=== PATIENT | male | born 1945 | race Caucasian/White ===

== ENCOUNTER 2019-11-07 11:58 | Emergency (ER) | payer MEDICARE, SELFPAY ==
--- NOTE | ~2019-11-07 | CT_ITS ---
EXAMINATION: CT soft tissue neck w con DATE: 11/07/2019 13:32 INDICATION: Dysphagia. Sore throat. TECHNIQUE: Computed tomography (CT) of the neck was performed with 75 mL Omnipaque-350 intravenous co ntrast. Automated exposure control and iterative reconstruction technique were employed. The dose-rafi gth product was 592.24 mGy-cm. COMPARISON: Neck CTA 09/21/2019 FINDINGS: There are no pathologically enlarged lymph nodes. There is plaque in the proximal internal carotid arteries with less than 50% stenosis relative to normal distal artery lumen diameters. The o ropharynx is unremarkable. The epiglottis is normal. There is mild mucosal thickening in right maxill jerad sinus. The mastoid air cells are normal. There is severe cervical spondylosis. IMPRESSION: 1. No etiology for the patient's symptoms. Reviewed, dictated and finalized at location [facility]. [employer]
[2019-11-07 12:15] VITALS: BP 104/62; PULSE 67; RESP 18; TEMP 36.8; O2SAT 98
[2019-11-07 12:30] VITALS: BP 115/54; PULSE 69; RESP 18; O2SAT 96
--- NOTE | 2019-11-07 12:32 | ED.GENADULT ---
HPI - General Adult General Chief complaint: Unspecified Stated complaint: short of breath Time Seen by Provider: 11/07/19 12:31 Source: patient Mode of arrival: ambulatory Limitations: no limitations History of Present Illness HPI narrative: A 74 y/o male presents to the ED, with c/o nasal congestion x 1 week that is worsening. Pt states that he cannot breathe d/t congestion and is having difficulty swallowing. Pt states his throat feels swollen and very dry with mild SOB but denies fever, cough, nasal drainage, otalgia, or CP. Pt states he saw an able seaman x 3 days ago for his Sx but there was no findings. He was sent to follow up with Dr. Hunt, an ENT, but he cannot get in to see him until next Thursday. He was prescribed Flonase to take daily along with a vaporizer but is having no relief. MD complaint: Nasal Congestion Onset (ago): week(s) (1) Relieving factors: none Associated symptoms: shortness of breath (mild) and other (difficulty swallowing, congestion) Treatments prior to arrival: other (Flonase, vaporizer) Related Data Home Medications Medication Instructions Recorded Confirmed amlodipine 5 mg PO DAILY 08/26/19 10/27/19 hydrochlorothiazide 25 mg PO DAILY 08/26/19 10/27/19 lisinopril 20 mg PO HS 08/26/19 09/21/19 meloxicam 7.5 mg PO BID 08/26/19 10/27/19 metoprolol succinate 25 mg PO DAILY 08/26/19 09/21/19 simvastatin 20 mg PO HS 08/26/19 09/21/19 tamsulosin 0.4 mg PO HS 08/26/19 09/21/19 buspirone 15 mg BID 09/21/19 10/27/19 betamethasone dipropionate 0.05 % 1 applic TOPICAL BID PRN 10/27/19 10/27/19 topical cream Allergies Allergy/AdvReac Type Severity Reaction Status Date / Time shellfish derived Allergy Severe Swelling Verified 11/07/19 12:31 levofloxacin Allergy Unknown Unknown Verified 11/07/19 12:31 Review of Systems Review of Systems: All systems reviewed & are unremarkable except as noted in HPI and below Constitutional: Constitutional: Denies fever(s) ENT: Reports dry mouth, Denies ear discharge, Denies otalgia, Reports nasal congestion, Denies nasal discharge, Reports throat swelling and Reports other (difficulty swallowing) Cardiovascular: Cardiovascular: Denies chest pain Respiratory: Respiratory: Denies cough and Reports dyspnea (mild) [facility] Past Medical History Medical History Afib Occurred following his aneurysm repair surgery without recurrence Aortic dissection, thoracic Arthritis Benign prostatic hyperplasia with urinary frequency Coronary artery disease Nonocclusive coronary disease noted on catheterization June 2012 with 50% left main disease and 40% ostial LAD disease noted on the catheterization at which time patient was diagnosed with the ascending aortic aneurysm dissection and was transferred to [facility] Dissecting ascending aortic aneurysm June 2012 Diverticulosis Dysthymia Essential hypertension Gout Left great toe Hyperlipidemia LDL goal <100 Lumbar burst fracture Orthostatic hypotension Pulmonary embolism This is list under the history of her patient had denied this in the past Respiratory failure Sleep apnea Polysomnogram 2012 nasal CPAP with a pressure of 10 cm of water Stasis dermatitis of both legs Uncomplicated alcohol dependence Surgical History Surgical History History of right knee joint replacement History of thoracotomy To repair spontaneous ascending aortic aneurysm dissection June 2012 Hx of CABG Due to involvement of the origin of the LAD with his ascending aneurysm. Not due to Hx of cardiac cath Hx of tonsillectomy Has a child Perirectal abscess x2 Presence of IVC filter Social History Social History Social History: The patient has been for approximately 52 years. He lives in [place]. 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 He drinks betwe
[2019-11-07 12:33] VITALS: PULSE 69; RESP 18; O2SAT 96
[2019-11-07 12:34] VITALS: PULSE 69
[2019-11-07 13:27] LABS: Blood Urea Nitrogen 27 mg/dL (8-26); Estimated CRCL calculation 65 ml/min; Estimated Glomerular Filt Rate > 60
[2019-11-07 13:54] VITALS: BP 90/75; PULSE 66; RESP 18; O2SAT 100
[2019-11-07 14:16] VITALS: BP 103/55; PULSE 61; RESP 18; O2SAT 99
== END 2019-11-07 14:18 | disposition home or self-care (01) ==
PROVIDERS: Emergency Provider Emergency Medicine; PCP Internal Medicine
DX: R09.81 Nasal congestion (principal); R47.02 Dysphasia; Z87.891 Personal history of nicotine dependence; M19.90 Unspecified osteoarthritis, unspecified site; I25.10 Atherosclerotic heart disease of native coronary artery without angina pectoris; F32.9 Major depressive disorder, single episode, unspecified; K57.90 Diverticulosis of intestine, part unspecified, without perforation or abscess without bleeding; I10 Essential (primary) hypertension; G47.30 Sleep apnea, unspecified
CPT/HCPCS: 70491; 87081; 87804; 87880; 99284; Q9967

== ENCOUNTER 2019-12-12 10:49 | Outpatient (CLI) | payer MEDICARE, SELFPAY ==
[2019-12-12 11:40] LABS: Albumin Level 4.6 g/dL (3.5-5.1)
[2019-12-12 12:44] LABS: Erythrocyte Sedimentation Rate 18 mm/hr (0-20)
[2019-12-15 05:55] LABS: CRP, High Sensitivity 2.2 mg/L (***)
== END 2019-12-12 10:50 | disposition home or self-care (01) ==
PROVIDERS: PCP Internal Medicine; Visit Provider Orthopaedic Surgery
DX: M17.11 Unilateral primary osteoarthritis, right knee (principal)
CPT/HCPCS: 36415; 82040; 85652; 86141

== ENCOUNTER 2020-03-05 11:55 | Outpatient (CLI) | payer MEDICARE, SELFPAY ==
[2020-03-05 13:42] LABS: Basophils Absolute Auto 0.1 K/mm3 (0.0-0.1); Basophils Percent Auto 2.2 % (0.2-1.2); Eosinophils Absolute Auto 0.2 K/mm3 (0-0.3); Eosinophils Percent Auto 2.7 % (0-4.4); Hematocrit 38.8 % (42.0-52.0); Hemoglobin 12.8 g/dL (14.0-18.0); Immature Granulocyte Absolute 0.02 K/mm3 (0.00-0.031); Immature Granulocyte Percent A 0.3 % (0-0.5); Lymphocytes Absolute Auto 1.01 K/mm3 (0.9-3.2); Mean Corpuscular Hemoglobin 32.1 pg (26-34); Mean Corpuscular Volume 97.2 fl (80-100); Mean Platelet Volume 10.1 fl (7.4-10.4); Monocytes Absolute Auto 0.7 K/mm3 (0.1-0.6); Monocytes Percent Auto 10.3 % (2.6-8.5); Neutrophils Absolute Auto 4.3 K/mm3 (1.3-6.7); Neutrophils Percent Auto 68.5 % (45.5-73.1); Platelet Count Result 226 k/mm3 (150-375); Red Blood Count 3.99 M/mm3 (4.6-6.20); Red Cell Distribution Width 13.2 % (11.5-14.5); White Blood Count 6.3 K/mm3 (4.5-10.0)
[2020-03-05 13:44] LABS: Urine Cotinine NEGATIVE
[2020-03-05 13:45] LABS: Prothrombin Time 12.9 Seconds (11.1-14.7)
[2020-03-05 13:46] LABS: Add Urine Microscopic? YES; Appearance Urine Clear (Clear); Bacteria Urine Trace /hpf; Bilirubin Urine Negative (Negative); Blood Urine Negative (Negative); Color Urine Yellow (Yellow); Glucose Urine UA Negative (Negative); Hyaline Casts Urine 50+ /lpf; Ketones Urine Trace mg/dL (Negative); Leukocyte Esterase Ur Negative LEU/UL (Negative); Mucus Urine Rare /lpf; Nitrate Urine Negative (Negative); Partial Thromboplastin Time 27.3 SECONDS (22.3-36.8); Protein Urine 1+ mg/dL (Negative); RBC Urine 0-2 /hpf (0-2); Specific Grav Ur 1.029 (1.001-1.035); Squamous Epithelial Cell Urine Rare /hpf (Few); WBC Urine 0-3 /hpf
[2020-03-05 13:48] LABS: Albumin Level 4.7 g/dL (3.5-5.1); Blood Urea Nitrogen 29 mg/dL (9-20); Calcium 9.5 mg/dL (8.4-10.2); Carbon Dioxide 27 mmol/L (22-30); Chloride 106 mmol/L (98-107); Estimated Glomerular Filt Rate 50; Glucose 103 mg/dL (75-110); Potassium 5.4 mmol/L (3.4-5.0); Sodium 139 mmol/L (137-145)
[2020-03-05 13:56] LABS: Hemoglobin A1C 5.8 % (<5.7)
== END 2020-03-05 11:56 | disposition home or self-care (01) ==
LOC: ANHSURGERY 11:57
PROVIDERS: PCP Internal Medicine; Visit Provider Orthopaedic Surgery
DX: M17.10 Unilateral primary osteoarthritis, unspecified knee (principal); Z01.812 Encounter for preprocedural laboratory examination
CPT/HCPCS: 36415; 80048; 80307; 81001; 82040; 83036; 85025; 85610; 85730; 86850; 86900; 86901; 87081

== ENCOUNTER 2020-03-12 00:05 | Outpatient (CLI) | payer MEDICARE, SELFPAY ==
[2020-03-12 15:58] LABS: SARS-CoV-2 RNA PCR Negative
== END 2020-03-12 00:06 | disposition home or self-care (01) ==
LOC: ANHCOVIDDT 00:05
PROVIDERS: PCP Internal Medicine; Visit Provider Orthopaedic Surgery
DX: Z01.812 Encounter for preprocedural laboratory examination (principal); Z20.828 Contact with and (suspected) exposure to other viral communicable diseases
CPT/HCPCS: 87635; C9803; U0003

== ENCOUNTER 2020-03-15 16:14 | Observation (INO) | payer MEDICARE, SELFPAY ==
[2020-03-05 12:41] VITALS: BP 102/51; PULSE 49; RESP 18; TEMP 36.3; O2SAT 98; BMI 33.5
[2020-03-14] VITALS (17 sets, daily range): BP systolic 76–117; BP diastolic 36–60; PULSE 40–80; RESP 10–19; TEMP 35.7–36.6; O2SAT 95–100; BMI 34.2
[2020-03-14] MEDS: LACTATED RINGERS 1,000 ML 30 ML IV CONT ×2 (07:05→10:10)
--- NOTE | 2020-03-14 07:08 | WPDANESEPPF ---
Anes - Initial Pre Proc Eval Procedure: Operation Date: 03/14/20 07:30 Proposed Procedures p Left Total Knee Arthroplasty With Patella Resurfacing - Michele Joel MD Date/Time: 03/14/20 07:08 Surgeon: Michele Joel MD Pre Op Diagnosis: Left Knee DJD Patient Data Age: 74 Gender: M Height: 5 ft 10.5 in Weight: 107.4 kg Last Vital Signs Temp 36.3 C L 03/05/20 12:41 Pulse 49 L 03/05/20 12:41 Resp 18 03/05/20 12:41 BP 102/51 L 03/05/20 12:41 Pulse Ox 98 03/05/20 12:41 Allergies Allergy/AdvReac Type Severity Reaction Status Date / Time shellfish derived Allergy Severe Swelling Verified 03/05/20 12:54 levofloxacin Allergy Unknown Unknown Verified 03/05/20 12:54 Home Medications Medication Instructions Recorded Confirmed Type lisinopril 20 mg PO HS 08/26/19 03/05/20 History meloxicam 7.5 mg PO BID 08/26/19 03/05/20 History metoprolol succinate 25 mg PO BID 08/26/19 03/05/20 History tamsulosin 0.4 mg PO HS 08/26/19 03/05/20 History aspirin 81 mg PO QAM #30 tablet 09/24/19 03/05/20 Rx betamethasone dipropionate 0.05 % 1 applic TOPICAL BID PRN 10/27/19 03/05/20 History topical cream clonazepam 0.5 mg tablet 0.5 mg PO .once at bedtime #30 11/08/19 03/05/20 Rx tablet citalopram 40 mg tablet 40 mg PO DAILY #90 tablet 01/25/20 03/05/20 Rx hydrochlorothiazide 25 mg tablet 25 mg PO DAILY #90 tablet 01/25/20 03/05/20 Rx simvastatin 20 mg tablet 20 mg PO HS #90 tablet 01/25/20 03/05/20 Rx amlodipine 5 mg tablet 5 mg PO DAILY #90 tablet 02/28/20 03/05/20 Rx Patient hx anesthesia problems: none Family hx anesthesia problems: none PMFSH Past Medical History Medical History Afib Occurred following his aneurysm repair surgery without recurrence Aortic dissection, thoracic Arthritis Benign prostatic hyperplasia with urinary frequency Coronary artery disease Nonocclusive coronary disease noted on catheterization June 2012 with 50% left main disease and 40% ostial LAD disease noted on the catheterization at which time patient was diagnosed with the ascending aortic aneurysm dissection and was transferred to [place] Degenerative joint disease of knee Depression Dissecting ascending aortic aneurysm June 2012 Diverticulosis Dysthymia Essential hypertension Gout Left great toe Hyperlipidemia LDL goal <100 Lumbar burst fracture Orthostatic hypotension Pulmonary embolism This is list under the history of her patient had denied this in the past Respiratory failure Sleep apnea Polysomnogram 2012 nasal CPAP with a pressure of 10 cm of water Stasis dermatitis of both legs Uncomplicated alcohol dependence Surgical History Surgical History History of right knee joint replacement History of thoracotomy To repair spontaneous ascending aortic aneurysm dissection June 2012 Hx of CABG Due to involvement of the origin of the LAD with his ascending aneurysm. Not due to Hx of cardiac cath Hx of tonsillectomy Has a child Perirectal abscess x2 Presence of IVC filter Family History Family History Other Diabetes mellitus Heart disease Social History Social History Social History: The patient has been for approximately 52 years. He lives in [place]. 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 He drinks between 8-12 beers a day in the past but quit drinking a month ago. He is a former smoker. He smoked a pack of cigarettes per day but quit approximately 30 years ago. He did start chewing tobacco in snuff. Uses about a can of snuff per week. Primary care physician is Dr. Remi Pop. Code status: DNI Smoking packs per day: 1 Smoking cigarettes per day: 20.0 Years smoked: 25 Smoking pack-years: 25.00 Second hand tobacco smoke exposure: No Alc
--- NOTE | 2020-03-14 07:32 | WPDHPUPDATE1 ---
History and Physical Update Update Date/Time: 03/14/20 07:32 History and Physical has been reviewed, including an updated exam of the patient. There are NO changes in the patient's condition. Risks, benefits, and alternatives have been discussed and questions answered. Patient agrees to proceed with procedure.
[2020-03-14] MEDS: ceFAZolin 2 GM/D5W 50 ML 2 GM/50 ML BAG IVPB ×3 (07:39→23:27)
[2020-03-14] MEDS: TRANEXAMIC ACID 1,000MG/ISO100 1,000 MG/100 ML BAG 200 MG IVPB (07:39)
[2020-03-14] MEDS: IBUPROFEN IV 800 MG/200 ML 800 MG/200 ML BAG 400 MG IVPB (07:49)
[2020-03-14] MEDS: TRANEXAMIC ACID 1,000 MG/10 ML AMPUL 1000 MG IV PUSH (09:49)
--- NOTE | 2020-03-14 10:09 | PM.OP ---
Procedure Note - Brief Procedure Note - Brief Date of procedure: 03/14/20 Pre-op diagnosis: Left Knee DJD Post-op diagnosis: same Procedure performed: LEFT TKA WITH PATELLA Anesthesia: GLMA Surgeon: Michele Joel MD Estimated blood loss (mL): 10 Drains: No Pathology: none sent Complications: No immediate complications Condition: stable Disposition: PACU
--- NOTE | 2020-03-14 11:10 | SUR.PHASEI ---
1109 SBAR FAXED FLOOR NOTIFIED
--- NOTE | 2020-03-14 11:46 | SUR.PHASEI ---
114 report called to floor
--- NOTE | 2020-03-14 11:50 | SUR.PHASEI ---
1150 spoke with spouse and updated her on pt condition, gave her the room#
--- NOTE | 2020-03-14 12:09 | ADMGEN ---
This patient, Matt Bar, was admitted to Medical Room 255-01. Patient/family oriented to hospital policies and general routines including ID bracelet, bed and alarms, visiting hours, pain management, procedures, bathroom and other care routines, personal items, smoking policy, room service/diet, and visiting hours. Valuables list has been completed. Information on how to activate the Rapid Response Team has been discussed. Patient/Family are encouraged to report perceived risks to care and to ask questions if they do not understand what they are told or what they should do.
--- NOTE | 2020-03-14 14:39 | PM.IMCN ---
Assessment and Plan Assessment and plan (1) History of total left knee replacement: Code(s): Z96.652 - Presence of left artificial knee joint Status: Acute Assessment and Plan: Per Dr. Joel. Postop care per Dr. Joel DVT prophylaxis per Dr. Joel patient has bilateral SCDs on. Pain management per Dr. Joel. (2) Hyperlipidemia: Code(s): E78.5 - Hyperlipidemia, unspecified Status: Chronic Assessment and Plan: Continue with Zocor. (3) Essential hypertension: Code(s): I10 - Essential (primary) hypertension Status: Chronic Assessment and Plan: Patient's blood pressure is low at this time so i am going to hold the metoprolol, lisinopril and hydrochlorothiazide. Hold amlodipine (4) Depression: Code(s): F32.9 - Major depressive disorder, single episode, unspecified Status: Chronic Assessment and Plan: It looks like patient is on Celexa. (5) Sleep apnea: Code(s): G47.30 - Sleep apnea, unspecified Status: Chronic Assessment and Plan: Patient brought his own CPAP. (6) Benign prostatic hyperplasia with urinary frequency: Code(s): N40.1 - Benign prostatic hyperplasia with lower urinary tract symptoms; R35.0 - Frequency of micturition Status: Chronic Assessment and Plan: Continue with tamsulosin. HPI Data of Consult Consult date: 03/14/20 Requesting Physician: Michele Joel MD Primary Care Provider: Remi Pop MD Consult Narrative Narrative: Matt Bar is a 74 year old male who has a history of degenerative joint disease bilaterally. The patient had previously had his right total knee performed in the past. The patient was suffering with pain and difficulty ambulating for approximately 12 years with the left leg. The patient stated that he had a injections to his left knee and has tried conservative measures. The patient states that he was evaluated by 5 orthopedic physicians before he was able to received surgery to that left knee. The patient had a left total knee arthroplasty today by Dr. Joel with patellar resurfacing. Patient tolerated well. The patient has no complaints at this time. He does have chronic back pain and he states that will be his next surgery. I thank Dr. Joel for this opportunity consult on this gentleman. Date of service is 03/14/2020 Review of Systems Review of Systems: All systems reviewed & are unremarkable except as noted in HPI and below Constitutional: Constitutional: Reports as per HPI and Reports no additional constitutional complaints Eyes: Eyes: Reports as per HPI and Reports no additional eye complaints ENT: Reports system reviewed and no additional complaints, except as documented and Reports Normal hearing present Cardiovascular: Cardiovascular: Reports no additional cardiovascular complaints Respiratory: Respiratory: Reports no additional respiratory complaints and Reports no additional respiratory complaints Gastrointestinal: Gastrointestinal: Reports as per HPI and Reports no additional gastrointestinal complaints Musculoskeletal: Musculoskeletal: Reports no additional musculoskeletal complaints Integumentary/Breasts: Skin/Breast: Reports system reviewed and no additional complaints, except as docu and Reports as per HPI Neurologic: Reports system reviewed and no additional complaints, except as documented, Reports as per HPI and Reports Normal hearing present Psychiatric: Psychiatric: Reports no additional psychiatric complaints and Reports as per HPI Endocrine: Endocrine: Reports no additional endocrine complaints Hematologic/Lymphatic: Hematologic/Lymphatic: Reports no additional hematologic/lymphatic complaints Allergic/Immunologic: Allergic/Immunologic: Reports no additional allergic/immunologic complaints [facility] Past Medical History Medical History (Updated 03/14/20 @ 15:07 by Sloane Hernandez NP) Afib Occurred followi
[2020-03-14] MEDS: SODIUM CHLORIDE 0.9% IV 500 ML IV CONT (15:06)
--- NOTE | 2020-03-14 16:03 | OP_ITS ---
DATE OF PROCEDURE: 03/14/2020 PREOPERATIVE DIAGNOSIS: Left knee degenerative joint disease. POSTOPERATIVE DIAGNOSIS: Left knee degenerative joint disease. PROCEDURE: Left total knee arthroplasty with patellar resurfacing. ANESTHESIA: General. COMPLICATIONS: None. INDICATIONS: This is a 74-year-old male with a history of severe arthrosis to the left knee. He was indicated for a left total knee arthroplasty. DESCRIPTION OF PROCEDURE: The patient was taken operating room in stable condition, placed in supine position. General anesthesia was induced and then the left lower extremity were prepped and draped sterilely from the toes to the thigh. A midline skin incision was made. Medial parapatellar arthrotomy was made. Patella was everted. There was severe arthrosis, mainly in the medial compartment. There was also moderate arthrosis in the lateral and patellofemoral compartment. IM domenic was placed the femur. Distal femoral cut was made in 5 degrees of valgus removing approximately 9 mm of bone from the high side and then the knee was sized to 72.5, so a cutting block was placed in line with Whitesides line and the anterior, posterior, and chamfer cuts were made to the femur. Next, an IM domenic was placed in the tibia and transtibial cut was made removing approximately 10 mm of bone from the high side of the tibia. The tibia was planed to a smooth surface. A 79 trial was placed in the tibia in alignment with one-third medial aspect of the tibial tubercle and then a 72.5 femoral trial was placed and the 10 poly trial was placed. Next, the patella cutting block was placed. The patellar thickness was approximately 25, so a cutting guide was placed and approximately 8 mm of bone were removed from the surface of the patella and then using another guide, the 3 PEG holes in the patella were placed and then a 7.9 mm trial was placed with a 34 diameter size patellar trial. Once that was placed, the knee was taken through range of motion and there was good tracking of the patella. There was good stability in varus-valgus stress in all planes. There was good anterior-posterior stability. The patella and the knee came out to full extension. The trial instrumentation was removed and then a Biomet tibial component measuring 79 and the femoral component measuring 72.5 and a patellar component measuring 34 were all cemented into place. Once cement was hardened, the excess cement was removed from periphery of the implant and then a polyethylene implant measuring 10 mm then was placed and was CR type and then the knee was taken through range of motion again, found to be stable in varus-valgus stress in all planes. An anterior-posterior stability was also stable. The patella tracked without any tilt. The knee came out to full extension. There was no excessive rollback in flexion. Once that was performed, then the wound was irrigated thoroughly. The tourniquet was deflated. Bleeders were cauterized. The fascial layer was approximated with #1 Vicryl, subcutaneous tissues 2-0 Vicryl. The skin was approximated nia. Wound was washed and placed sterile dressing. The patient was extubated. Robin I MT: Rashard
[2020-03-14] MEDS: THIAMINE HCL 100 MG TABLET PO (16:12)
[2020-03-14] MEDS: FOLIC ACID 1 MG TABLET PO (16:12)
[2020-03-14] MEDS: CELECOXIB 200 MG CAPSULE PO (16:13)
[2020-03-14] MEDS: DOCUSATE SODIUM 100 MG CAPSULE PO (16:13)
[2020-03-14] MEDS: TAMSULOSIN HCL 0.4 MG CAPSULE PO (20:37)
[2020-03-14] MEDS: SIMVASTATIN 20 MG TABLET PO (21:12)
[2020-03-14] MEDS: INDOMETHACIN 25 MG CAPSULE 50 MG PO (21:13)
[2020-03-14] MEDS: CLONAZEPAM 0.5 MG TAB PO (23:25)
[2020-03-15] VITALS (12 sets, daily range): BP systolic 101–114; BP diastolic 43–53; PULSE 50–78; RESP 13–23; TEMP 36.2–36.8; O2SAT 92–98
--- NOTE | ~2020-03-15 | XR_ITS ---
EXAMINATION: XR knee LT 2V DATE: 03/14/2020 10:28 INDICATION: Postoperative evaluation following left total knee arthroplasty. TECHNIQUE: Anteroposterior and lateral views of the left knee were obtained. COMPARISON: None. FINDINGS: Left total knee arthroplasty with patellar resurfacing appears well seated and in near anatomic align ment. No fractures identified. Skin nia and expected postoperative subcutaneous and intramedull jerad and intra-articular gas. Surgical clips along the medial aspect of the left thigh which may be re lated to prior saphenous vein graft harvest. IMPRESSION: 1. Left total knee arthroplasty, negative for postoperative purposes. Reviewed, dictated and finalized at location A.
[2020-03-15 05:24] LABS: Basophils Absolute Auto 0.1 K/mm3 (0.0-0.1); Basophils Percent Auto 1.2 % (0.2-1.2); Eosinophils Absolute Auto 0.4 K/mm3 (0-0.3); Hematocrit 31.3 % (42.0-52.0); Hemoglobin 10.4 g/dL (14.0-18.0); Immature Granulocyte Absolute 0.04 K/mm3 (0.00-0.031); Immature Granulocyte Percent A 0.4 % (0-0.5); Lymphocytes Absolute Auto 0.85 K/mm3 (0.9-3.2); Mean Corpuscular HGB Conc 33.2 g/dl (32-36); Mean Corpuscular Hemoglobin 32.8 pg (26-34); Mean Corpuscular Volume 98.7 fl (80-100); Mean Platelet Volume 9.8 fl (7.4-10.4); Monocytes Absolute Auto 1.1 K/mm3 (0.1-0.6); Monocytes Percent Auto 11.7 % (2.6-8.5); Neutrophils Absolute Auto 6.9 K/mm3 (1.3-6.7); Neutrophils Percent Auto 73.7 % (45.5-73.1); Platelet Count Result 159 k/mm3 (150-375); Red Blood Count 3.17 M/mm3 (4.6-6.20); Red Cell Distribution Width 13.1 % (11.5-14.5); White Blood Count 9.4 K/mm3 (4.5-10.0)
[2020-03-15 05:36] LABS: Blood Urea Nitrogen 36 mg/dL (9-20); Carbon Dioxide 27 mmol/L (22-30); Chloride 102 mmol/L (98-107); Estimated CRCL calculation 49 ml/min; Estimated Glomerular Filt Rate 46; Glucose 108 mg/dL (75-110); Potassium 4.5 mmol/L (3.4-5.0); Sodium 134 mmol/L (137-145)
[2020-03-15] MEDS: DOCUSATE SODIUM 100 MG CAPSULE PO ×2 (09:31→16:40)
[2020-03-15] MEDS: FOLIC ACID 1 MG TABLET PO (09:31)
[2020-03-15] MEDS: CELECOXIB 200 MG CAPSULE PO (09:32)
[2020-03-15] MEDS: CITALOPRAM HYDROBROMIDE 20 MG TABLET 40 MG PO (09:32)
[2020-03-15] MEDS: THIAMINE HCL 100 MG TABLET PO (09:32)
[2020-03-15] MEDS: ceFAZolin 2 GM/D5W 50 ML 2 GM/50 ML BAG IVPB (09:37)
--- NOTE | 2020-03-15 09:58 | WPDANESPN ---
Anes - Prog Note Post-Op Date/Time: 03/15/20 09:58 Cardiovascular status: normal Respiratory status: normal Airway patency: baseline Mental status: baseline Post-Op hydration status: normal Vital Signs: Last Vital Signs Temp 97.1 F L 03/15/20 06:00 Pulse 55 L 03/15/20 06:00 Resp 18 03/15/20 06:00 BP 104/50 L 03/15/20 06:00 Pulse Ox 96 03/15/20 06:00 I/O: Intake & Output 03/14/20 03/15/20 03/15/20 23:59 07:59 15:59 Intake Total 1340 450 240 Output Total 1500 Balance 1340 -1050 240 Laboratory Tests 03/15/20 05:01 03/15/20 05:01 03/15/20 03/15/20 05:01 05:01 WBC 9.4 RBC 3.17 L Hgb 10.4 L Hct 31.3 L MCV 98.7 MCH 32.8 MCHC 33.2 RDW 13.1 Plt Count 159 MPV 9.8 Immature Gran % (Auto) 0.4 Neut % (Auto) 73.7 H Lymph % (Auto) 9.0 L [place] % (Auto) 11.7 H Eos % (Auto) 4.0 Baso % (Auto) 1.2 Lymph # (Auto) 0.85 L [place] # (Auto) 1.1 H Eos # (Auto) 0.4 H Baso # (Auto) 0.1 Abs Immat Gran (auto) 0.04 H Absolute Neuts (auto) 6.9 H Absolute Nucleated RBC 0.0 Nucleated RBC % 0.0 Sodium 134 L Potassium 4.5 Chloride 102 Carbon Dioxide 27 BUN 36 H Creatinine 1.50 H Estim Creat Clear Calc 49 Estimated GFR 46 L Glucose 108 Calcium 8.0 L Post-procedural complaints: none Patient Feedback: Patient satisfied with anesthetic care.
[2020-03-15] MEDS: ASPIRIN 325 MG ENTERIC TABLET 650 MG PO (10:32)
--- NOTE | 2020-03-15 10:43 | PM.IMPN ---
Progress Note: A&P Assessment and Plan (1) GERMAN (acute kidney injury): Code(s): N17.9 - Acute kidney failure, unspecified Status: Acute Assessment and Plan: Patient's baseline creatinine seems to be around 1.2-1 Preop creatinine was 1.4 and this morning his creatinine was 1.5. Most likely secondary to surgery. Orthopedic surgeon has the patient on Celebrex which I feel will cause more harm to his kidney function. Will talk with ortho about adjustments to his meds to prevent further creatinine issues. Will order for recheck creatinine 1 week and follow-up with primary care provider for further evaluation. (2) Gout: Code(s): M10.9 - Gout, unspecified Status: Acute Assessment and Plan: Patient reports pain to his left MTP joint of his foot along with some swelling, redness. Patient reports history of gout and it feels similar at this time. Patient's creatinine is elevated from his baseline Patient can be placed on colchicine since his creatinine clearance is greater than 30 verses cortical steroids. Will talk with ortho about patient's options and what they recommend. (3) History of total left knee replacement: Code(s): Z96.652 - Presence of left artificial knee joint Status: Acute Assessment and Plan: Postop day 1. Pain is elevated at this time any is due for some pain meds. Per Dr. Joel. Postop care per Dr. Joel DVT prophylaxis per Dr. Joel patient has bilateral SCDs on. Pain management per Dr. Joel. Patient is stable from a medical standpoint for discharge once cleared by ortho. (4) Hyperlipidemia: Code(s): E78.5 - Hyperlipidemia, unspecified Status: Chronic Assessment and Plan: Continue with Zocor. (5) Essential hypertension: Code(s): I10 - Essential (primary) hypertension Status: Chronic Assessment and Plan: Patient's blood pressure has still been low even this morning and we will continue to hold his blood pressure medications at this time. Will have the patient check his blood pressure at home and if it is low to hold his home meds otherwise he can continue his medications as prescribed by his primary care provider. (6) Depression: Code(s): F32.9 - Major depressive disorder, single episode, unspecified Status: Chronic Assessment and Plan: Continue Celexa. (7) Sleep apnea: Code(s): G47.30 - Sleep apnea, unspecified Status: Chronic Assessment and Plan: Patient brought his own CPAP. (8) Benign prostatic hyperplasia with urinary frequency: Code(s): N40.1 - Benign prostatic hyperplasia with lower urinary tract symptoms; R35.0 - Frequency of micturition Status: Chronic Assessment and Plan: Continue with tamsulosin. Time Spent With Patient Time with patient: 25 - 35 minutes Subjective Date/time seen: 03/15/20 10:43 Interval history: Date of service 03/15/2020: The patient is having increased pain at this time since he is postop day 1 after having elective left knee surgery by Dr. Joel. His pain is rated a 7/10 at this time. This morning he got up and walked with therapy and did very well with his pain became worse. He has been eating and drinking without any issues as well as passing gas. He has not been having any bowel movements since his procedure yesterday. He does report some pain to his left 1st MTP joint in states it feels like he is having a gout flare. He denies any fevers, chills, chest pain, shortness of breath, cough, nausea, vomiting, abdominal pain, leg sw
[2020-03-15] MEDS: COLCHICINE 0.6 MG TABLET 1.2 MG PO (11:47)
[2020-03-15] MEDS: COLCHICINE 0.6 MG TABLET PO (12:42)
[2020-03-15] MEDS: MORPHINE SULFATE 4 MG/ML INJ IV PUSH (15:01)
--- NOTE | 2020-03-15 15:52 | PM.PNORT ---
Progress Note: A&P Assessment and Plan (1) S/P total knee arthroplasty: Qualifiers: Laterality: left Qualified Code(s): Z96.652 - Presence of left artificial knee joint Code(s): Z96.659 - Presence of unspecified artificial knee joint Status: Acute Assessment and Plan: POD #1: LEFT TKA Continue PT/OT Continue Pain control. Continue DVT prophylaxis. Continue use of incentive spirometry. Continue SCDs. Ice to knee. No pillows under knee. Walker for ambulation. WBAT Dispo: Home with home health likely tomorrow pending progress with PT/OT. (2) Gout: Qualifiers: Gout site: toe Gout etiology: unspecified cause Chronicity: acute Laterality: left Qualified Code(s): M10.9 - Gout, unspecified Code(s): M10.9 - Gout, unspecified Status: Acute Assessment and Plan: Appreciate medicine input. Continue to monitor 1st MTP joint, improving per patient. Patient started on cholchicine today. Subjective Subjective Date/Time Seen: 03/15/20 1200 POD#1: LEFT TKA No new complaints. Pain well controlled. Difficulty with urination. Review of Systems Review of Systems: All systems reviewed & are unremarkable except as noted in HPI and below Constitutional: Constitutional: Denies fever(s) and Denies headache(s) ENT: Denies headache(s) Cardiovascular: Cardiovascular: Denies chest pain, Denies diaphoresis, Reports lightheadedness, Denies palpitations and Denies dyspnea Respiratory: Respiratory: Denies dyspnea Gastrointestinal: Gastrointestinal: Denies abdominal pain, Denies constipation, Denies nausea and Denies vomiting Genitourinary: Genitourinary: Denies dysuria and Reports nocturia Musculoskeletal: Musculoskeletal: Reports arthralgias (Left Knee/Left 1st MTP joint ) and Reports joint swelling (Left Knee/Left 1st MTP joint ) Neurologic: Denies headache(s) Endocrine: Endocrine: Denies palpitations Exam Const: General: comfortable and no acute distress Resp: Effort & Inspection: normal respiratory effort Cardio: Rate: regular rate Rhythm: regular rhythm GI: GI Palp: Yes Soft to palpation, No Tenderness to palpation present (GI) and No Guarding due to palpation present (GI) : Other: Urinary Retention, requiring straight caths Skin: Wounds: wounds noted Other: Incision c/d/i. No surrounding redness/warmth. No hematoma. Mild ecchymosis. No wound dehiscence Neuro: Cognition (Neuro): normal cognition Other: NV intact aside from block. Moves toes. Sensation intact to light touch. +ankle dorsiflexion/plantarflexion. Extrem: Right upper extremity: normal to inspection, full ROM and normal capillary refill Left upper extremity: normal to inspection, full ROM and normal capillary refill Right lower extremity: normal to inspection, full ROM and knee Details: normal to inspection and normal ROM; no tenderness and no swelling Left lower extremity: normal to inspection, full ROM, knee Details: tenderness, swelling, abnormal ROM (ROM limited due to pain/consistent with recent surgery ) and other and foot Details: normal capillary refill, tenderness (1st MTP joint ), abnormal ROM of toe Details: pain with active ROM Location: of the great toe, warmth (1st MTP joint ) and vascular exam Details: dorsalis pedis pulse present and other (erythema 1st MTP joint ); no edema, no ecchymosis and no crepitus Other: Incision left TKA dressing c/d/i. No hematoma. No signs of infection. No wound dehiscence. Psych: Mental Status: mental status grossly normal Objective Data Vital Signs Vital Signs: Vital Signs - 24 hr 03/14/20 17:40 03/14/20 20:00 03/14/20 22:00 Temperature 36.3 C L 36.3 C L Pulse Rate 46 L 80 Pulse Rate [Left Pedal (Dorsalis Pedis)] 60 Respiratory Rate 17 18 Blood Pressure 102/48 L 102/48 L Pulse Oximetry 97 97 03/15/20 00:00 03/15/20 02:00 03/15/20 04:00 Temperature 36.6 C Pulse Rate 56 L Pulse Rate [Left Pedal (Dorsalis
[2020-03-15] MEDS: CLONAZEPAM 0.5 MG TAB PO (20:00)
[2020-03-15] MEDS: TAMSULOSIN HCL 0.4 MG CAPSULE PO (20:00)
[2020-03-15] MEDS: SIMVASTATIN 20 MG TABLET PO (20:00)
[2020-03-15] MEDS: ACETAMINOPHEN 500 MG TABLET 1000 MG PO (22:07)
[2020-03-16 02:40] VITALS: PULSE 70; O2SAT 93
[2020-03-16 04:17] VITALS: PULSE 50
[2020-03-16 04:51] LABS: Basophils Absolute Auto 0.1 K/mm3 (0.0-0.1); Basophils Percent Auto 0.7 % (0.2-1.2); Eosinophils Absolute Auto 0.4 K/mm3 (0-0.3); Eosinophils Percent Auto 3.8 % (0-4.4); Hemoglobin 9.4 g/dL (14.0-18.0); Immature Granulocyte Absolute 0.05 K/mm3 (0.00-0.031); Immature Granulocyte Percent A 0.5 % (0-0.5); Lymphocytes Absolute Auto 0.87 K/mm3 (0.9-3.2); Mean Corpuscular HGB Conc 32.4 g/dl (32-36); Mean Corpuscular Hemoglobin 31.5 pg (26-34); Mean Corpuscular Volume 97.3 fl (80-100); Mean Platelet Volume 10.1 fl (7.4-10.4); Monocytes Absolute Auto 1.4 K/mm3 (0.1-0.6); Monocytes Percent Auto 13.9 % (2.6-8.5); Neutrophils Percent Auto 72.1 % (45.5-73.1); Platelet Count Result 141 k/mm3 (150-375); Red Blood Count 2.98 M/mm3 (4.6-6.20); Red Cell Distribution Width 12.9 % (11.5-14.5); White Blood Count 9.7 K/mm3 (4.5-10.0)
[2020-03-16 05:06] LABS: Blood Urea Nitrogen 38 mg/dL (9-20); Calcium 7.9 mg/dL (8.4-10.2); Carbon Dioxide 30 mmol/L (22-30); Chloride 100 mmol/L (98-107); Estimated CRCL calculation 52 ml/min; Estimated Glomerular Filt Rate 50; Glucose 125 mg/dL (75-110); Potassium 4.3 mmol/L (3.4-5.0); Sodium 133 mmol/L (137-145)
[2020-03-16 06:00] VITALS: BP 110/57; PULSE 65; RESP 18; TEMP 36.8; O2SAT 96
[2020-03-16 07:38] VITALS: BP 114/81; PULSE 77; RESP 20; TEMP 36.6; O2SAT 98
[2020-03-16] MEDS: CITALOPRAM HYDROBROMIDE 20 MG TABLET 40 MG PO (07:58)
[2020-03-16] MEDS: DOCUSATE SODIUM 100 MG CAPSULE PO (07:59)
[2020-03-16] MEDS: FOLIC ACID 1 MG TABLET PO (07:59)
[2020-03-16] MEDS: ASPIRIN 325 MG ENTERIC TABLET 650 MG PO (07:59)
[2020-03-16] MEDS: THIAMINE HCL 100 MG TABLET PO (07:59)
--- NOTE | 2020-03-16 08:32 | PM.IMPN ---
Progress Note: A&P Assessment and Plan (1) GERMAN (acute kidney injury): Code(s): N17.9 - Acute kidney failure, unspecified Status: Acute Assessment and Plan: Patient's baseline creatinine seems to be around 1.2-1 Preop creatinine was 1.4 and this morning it was stable at 1.4. Most likely secondary to surgery vs celebrex. Will order for recheck creatinine 1 week and follow-up with primary care provider for further evaluation. (2) Gout: Qualifiers: Gout site: toe Gout etiology: unspecified cause Chronicity: acute Laterality: left Qualified Code(s): M10.9 - Gout, unspecified Code(s): M10.9 - Gout, unspecified Status: Acute Assessment and Plan: Patient reports pain to his left MTP joint of his foot along with some swelling, redness. Patient reports history of gout and it feels similar at this time. He was given colchicine 1.2 mg and then 0.6 mg 1 hour later for the treatment of acute gout. He denies any more pain to his toe. Will start him on Prophylactic Colchicine 0.6 mg daily to prevent further gout flare Will talk with ortho about patient's options and what they recommend. (3) History of total left knee replacement: Code(s): Z96.652 - Presence of left artificial knee joint Status: Acute Assessment and Plan: Postop day 1. Pain is elevated at this time any is due for some pain meds. Per Dr. Joel. Postop care per Dr. Joel DVT prophylaxis per Dr. Joel patient has bilateral SCDs on. Pain management per Dr. Joel. Patient is stable from a medical standpoint for discharge once cleared by ortho. (4) Hyperlipidemia: Code(s): E78.5 - Hyperlipidemia, unspecified Status: Chronic Assessment and Plan: Continue with Zocor. (5) Essential hypertension: Code(s): I10 - Essential (primary) hypertension Status: Chronic Assessment and Plan: Patient's blood pressure is improved today, 114/81. Will hold BP medications today and have him restart them at home in the morning. Will have the patient check his blood pressure at home and if it is low to hold his home meds otherwise he can continue his medications as prescribed by his primary care provider. (6) Depression: Code(s): F32.9 - Major depressive disorder, single episode, unspecified Status: Chronic Assessment and Plan: Continue Celexa. (7) Sleep apnea: Code(s): G47.30 - Sleep apnea, unspecified Status: Chronic Assessment and Plan: Patient brought his own CPAP. (8) Benign prostatic hyperplasia with urinary frequency: Code(s): N40.1 - Benign prostatic hyperplasia with lower urinary tract symptoms; R35.0 - Frequency of micturition Status: Chronic Assessment and Plan: Continue with tamsulosin. Time Spent With Patient Time with patient: 25 - 35 minutes Subjective Date/time seen: 03/16/20 08:32 Interval history: Date of service 03/16/2020: Patient states his pain is better controlled at this time. He has been getting up walking to the bathroom without any real issues. He is rated be discharged home today. He is no longer having any pain to his left 1st MTP joint after getting the colchicine. He has been eating and drinking without any issues as well as passing gas. He has not been having any bowel movements since his procedure but he denies feeling constipated. He denies any fevers, chills, chest pain, shortness of breath, cough, nausea, vomiting, abdominal pain, leg swelling, calf pain or any other symptoms at this time. Revi
[2020-03-16 09:07] VITALS: O2SAT 93
--- NOTE | 2020-03-16 09:09 | PM.PNORT ---
Progress Note: A&P Assessment and Plan (1) S/P total knee arthroplasty: Qualifiers: Laterality: left Qualified Code(s): Z96.652 - Presence of left artificial knee joint Code(s): Z96.659 - Presence of unspecified artificial knee joint Status: Acute Assessment and Plan: POD #2: LEFT TKA Continue PT/OT. WBAT. Walker at all times. Continue Pain control. Ice. No pillows under knee. Continue DVT prophylaxis. Continue use of incentive spirometry. Continue SCDs. Dressing changed. Incision well-approximated. New dressing applied. Dispo: Home with home health today. (2) Gout: Qualifiers: Gout site: toe Gout etiology: unspecified cause Chronicity: acute Laterality: left Qualified Code(s): M10.9 - Gout, unspecified Code(s): M10.9 - Gout, unspecified Status: Acute Assessment and Plan: Marked improved with cholchicine. Appreciate medicine input. 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 Subjective Subjective Date/Time Seen: 03/16/20 09:09 POD#2: LEFT TKA No new complaints. Pain well controlled. No longer having difficulty with urination. Marked improvement in pain of the 1st MTP joint. Review of Systems Review of Systems: All systems reviewed & are unremarkable except as noted in HPI and below Constitutional: Constitutional: Denies fever(s) and Denies headache(s) ENT: Denies headache(s) Cardiovascular: Cardiovascular: Denies chest pain, Denies diaphoresis, Reports lightheadedness, Denies palpitations and Denies dyspnea Respiratory: Respiratory: Denies dyspnea Gastrointestinal: Gastrointestinal: Denies abdominal pain, Denies constipation, Denies nausea and Denies vomiting Genitourinary: Genitourinary: Denies dysuria and Reports nocturia Musculoskeletal: Musculoskeletal: Reports arthralgias (Left Knee) and Reports joint swelling (Left Knee) Neurologic: Denies headache(s) Endocrine: Endocrine: Denies palpitations Exam Const: General: comfortable and no acute distress Resp: Effort & Inspection: normal respiratory effort Cardio: Rate: regular rate Rhythm: regular rhythm GI: GI Palp: Yes Soft to palpation, No Tenderness to palpation present (GI) and No Guarding due to palpation present (GI) : Other: Urinary Retention, requiring straight caths Skin: Wounds: wounds noted Other: Incision c/d/i. No surrounding redness/warmth. No hematoma. Mild ecchymosis. No wound dehiscence Neuro: Cognition (Neuro): normal cognition Other: NV intact aside from block. Moves toes. Sensation intact to light touch. +ankle dorsiflexion/plantarflexion. Extrem: Right upper extremity: normal to inspection, full ROM and normal capillary refill Left upper extremity: normal to inspection, full ROM and normal capillary refill Right lower extremity: normal to inspection, full ROM and knee Details: normal to inspection and normal ROM; no tenderness and no swelling Left lower extremity: normal to inspection, full ROM, knee Details: tenderness, swelling, abnormal ROM (ROM limited due to pain/consistent with recent surgery ) and other and foot Details: normal capillary refill, tenderness (1st MTP joint- IMPROVED ), toes with normal ROM, warmth (1st MTP joint- MARKED IMPROVEMENT ) and vascular exam Details: dorsalis pedis pulse present; no edema, no ecchymosis and no crepitus Other: Incision left TKA dressing c/d/i. No hematoma. No signs of infection. No wound dehiscence. Psych: Mental Status: mental status grossly normal Objective Data Vital Signs Vital Signs: Vital Signs - 24 hr 03/15/20 09:40 03/15/20 13:40 03/15/20 16:00 Temperature 36.6 C 36.7 C Pulse Rate 58 L 65 Pulse Rate [Left Pedal (Dorsalis Pedis)] 50 L Respiratory Rate 23 H 13 Blood Pressure 106/44 L 103/50 L 103/50 L Pulse Oximetry 93 96 03/15/20 19:02 03/15/20 20:00 03/15/20 21:50 Temperature 36.8 C Pulse Rate 78 78 72 Pulse Rate [Left Pedal (
[2020-03-16] MEDS: COLCHICINE 0.6 MG TABLET PO (11:24)
== END 2020-03-16 12:25 | disposition home health service (06) ==
LOC: ANHSURGERY 16:23 → ANH2MED 16:23
PROVIDERS: Physician Assistant; Admitting Provider Orthopaedic Surgery; PCP Internal Medicine; Visit Provider Orthopaedic Surgery
PROC: (CPT 27447; principal; 2020-03-14 07:30)
DX: M17.12 Unilateral primary osteoarthritis, left knee (principal); M10.9 Gout, unspecified; N17.9 Acute kidney failure, unspecified; E78.5 Hyperlipidemia, unspecified; I10 Essential (primary) hypertension; I71.01 Dissection of thoracic aorta; F10.20 Alcohol dependence, uncomplicated; F32.9 Major depressive disorder, single episode, unspecified; N40.1 Benign prostatic hyperplasia with lower urinary tract symptoms; R35.0 Frequency of micturition; I25.10 Atherosclerotic heart disease of native coronary artery without angina pectoris; G47.30 Sleep apnea, unspecified; Z79.82 Long term (current) use of aspirin; Z79.899 Other long term (current) drug therapy; Z87.891 Personal history of nicotine dependence; Z96.651 Presence of right artificial knee joint; Z95.1 Presence of aortocoronary bypass graft
CPT/HCPCS: 27447; 36415; 73560; 80048; 85025; 97110; 97116; 97161; 97165; A9270; C1713; C1776; G0378; J0171; J0690; J1100; J1170; J1741; J2270; J2370; J2405; J2704; J2795; J3010; J7030; J7040; J7120

== ENCOUNTER 2020-05-31 10:57 | Outpatient (CLI) | payer MEDICARE, SELFPAY ==
[2020-05-31 11:46] LABS: Magnesium 2.3 mg/dL (1.6-2.3)
== END 2020-05-31 10:58 | disposition home or self-care (01) ==
LOC: ANHLAB 11:00
PROVIDERS: PCP Internal Medicine; Visit Provider Internal Medicine Critical Care Medicine
DX: G47.61 Periodic limb movement disorder (principal)
CPT/HCPCS: 36415; 82728; 83735

== ENCOUNTER 2020-06-03 17:04 | Emergency (ER) | payer MEDICARE, SELFPAY ==
[2020-06-03] VITALS (18 sets, daily range): BP systolic 71–109; BP diastolic 41–83; PULSE 67–75; RESP 9–23; TEMP 36.2; O2SAT 92–98
--- NOTE | ~2020-06-03 | CT_ITS ---
EXAMINATION: CT brain wo con DATE: 06/03/2020 17:59 INDICATION: Confusion. Altered mental status. TECHNIQUE: Computed tomography (CT) of the head was performed without intravenous contrast. The dose- length product was 605.33 mGy-cm. The mA was adjusted according to patient size. Iterative reconstruc tion technique was employed. COMPARISON: CT dated 09/21/2019 FINDINGS: Mild atrophy. No acute intracranial hemorrhage, infarction, mass or mass effect. No ventric ulomegaly or midline shift. Basilar cisterns are patent. Significant abnormality of the paranasal sin uses or mastoids. No depressed skull fractures. Midline sagittal images are unremarkable. IMPRESSION: 1. No acute intracranial abnormality. Reviewed, dictated and finalized at location A.
--- NOTE | 2020-06-03 17:17 | ECG_ITS ---
Measurements Intervals [place] Rate: 71 P: 40 [place]: 213 QRS: 58 QRSD: 151 T: 36 QT: 437 QTc: 477 Interpretive Statements SINUS RHYTHM WITH FIRST DEGREE AV BLOCK RIGHT BUNDLE BRANCH BLOCK ABNORMAL ECG Electronically Signed On 06-04-2020 7:09:06 CDT by Darshan Combs D.O.
[2020-06-03] MEDS: SODIUM CHLORIDE 0.9% IV 1,000 ML 999 ML (17:29)
[2020-06-03 18:23] LABS: Basophils Absolute Auto 0.1 K/mm3 (0.0-0.1); Basophils Percent Auto 1.7 % (0.2-1.2); Eosinophils Absolute Auto 0.2 K/mm3 (0-0.3); Eosinophils Percent Auto 2.5 % (0-4.4); Hematocrit 37.8 % (42.0-52.0); Hemoglobin 12.9 g/dL (14.0-18.0); Immature Granulocyte Absolute 0.04 K/mm3 (0.00-0.031); Immature Granulocyte Percent A 0.5 % (0-0.5); Lymphocytes Absolute Auto 0.97 K/mm3 (0.9-3.2); Lymphocytes Percent Auto 12.3 % (18.3-44.2); Mean Corpuscular HGB Conc 34.1 g/dl (32-36); Mean Corpuscular Hemoglobin 31.8 pg (26-34); Mean Corpuscular Volume 93.1 fl (80-100); Mean Platelet Volume 9.2 fl (7.4-10.4); Monocytes Absolute Auto 0.7 K/mm3 (0.1-0.6); Monocytes Percent Auto 8.9 % (2.6-8.5); Neutrophils Absolute Auto 5.8 K/mm3 (1.3-6.7); Neutrophils Percent Auto 74.1 % (45.5-73.1); Platelet Count Result 256 k/mm3 (150-375); Red Blood Count 4.06 M/mm3 (4.6-6.20); Red Cell Distribution Width 13.2 % (11.5-14.5); White Blood Count 7.9 K/mm3 (4.5-10.0)
[2020-06-03 18:41] LABS: Prothrombin Time 13.3 Seconds (11.1-14.7)
[2020-06-03 18:46] LABS: Alanine Aminotransferase 20 U/L (4-50); Albumin Level 4.2 g/dL (3.5-5.1); Alkaline Phosphatase 74 U/L (38-126); Anion Gap 13 mmol/L (8-16); Aspartate Amino Transferase 26 U/L (17-59); Bilirubin,Total < 0.1 mg/dL (0.2-1.3); Blood Urea Nitrogen 19 mg/dL (9-20); Calcium 8.4 mg/dL (8.4-10.2); Carbon Dioxide 23 mmol/L (22-30); Chloride 94 mmol/L (98-107); Estimated CRCL calculation 45 ml/min; Estimated Glomerular Filt Rate 42; Glucose 113 mg/dL (75-110); Sodium 130 mmol/L (137-145)
[2020-06-03 18:48] LABS: Ethanol 117 mg/dL (<10)
[2020-06-03] MEDS: SODIUM CHLORIDE 0.9% IV 1,000 ML 999 ML IV CONT (18:52)
[2020-06-03 18:58] LABS: Troponin I < 0.012 ng/mL (0.000-0.034)
[2020-06-03 19:05] LABS: Lactic Acid Reflex 1.8 mmol/L (0.7-2.1)
[2020-06-03 19:06] LABS: NT Pro B Type Natriuretic Pept 107 PG/ML (5-100)
[2020-06-03 19:33] LABS: Add Urine Microscopic? YES; Appearance Urine Cloudy (Clear); Bilirubin Urine Negative (Negative); Blood Urine Negative (Negative); Color Urine Yellow (Yellow); Glucose Urine UA Negative (Negative); Hyaline Casts Urine 50+ /lpf; Ketones Urine Negative (Negative); Leukocyte Esterase Ur Trace LEU/UL (Negative); Mucus Urine Few /lpf; Nitrate Urine Negative (Negative); Protein Urine 1+ mg/dL (Negative); RBC Urine 0-2 /hpf (0-2); Specific Grav Ur 1.016 (1.001-1.035); Squamous Epithelial Cell Urine Occasional /hpf (Few)
--- NOTE | 2020-06-03 20:03 | ED.AMS ---
HPI - Altered Mental Status General Chief Complaint: Altered Mental Status Stated Complaint: ALTERED MENTAL STATUS Time Seen by Provider: 06/03/20 17:14 Source: patient and family Mode of arrival: EMS Limitations: altered mental status History of Present Illness HPI narrative: 75-year-old with a history of hypertension, hyperlipidemia was brought in by with complaints of confusion. Patient states that he was outside all morning drinking beer and doing some yard work he states that he had about 10 cans of beer today. Upon arrival patient denies any headache, chest pain, shortness of breath, abdominal pain. No history of fever or chills. As per the he was very confused when he got back home. complaint: confusion Timing confirmed by: spouse Severity: moderate Context: alcohol abuse Associated symptoms: denies other symptoms Related Data Home Medications Medication Instructions Recorded Confirmed lisinopril 20 mg PO HS 08/26/19 03/14/20 tamsulosin 0.4 mg PO HS 08/26/19 03/14/20 meloxicam 7.5 mg tablet 7.5 mg PO DAILY 04/13/20 aspirin 81 mg tablet,delayed 81 mg PO DAILY 05/31/20 release Allergies Allergy/AdvReac Type Severity Reaction Status Date / Time shellfish derived Allergy Severe Swelling Verified 05/24/20 13:19 levofloxacin Allergy Mild Rash Verified 05/24/20 13:19 Review of Systems Review of Systems: All systems reviewed & are unremarkable except as noted in HPI and below Constitutional: Constitutional: Reports no additional constitutional complaints Eyes: Eyes: Reports as per HPI ENT: Reports system reviewed and no additional complaints, except as documented Cardiovascular: Cardiovascular: Reports no additional cardiovascular complaints Respiratory: Respiratory: Reports no additional respiratory complaints Gastrointestinal: Gastrointestinal: Reports no additional gastrointestinal complaints Neurologic: Reports system reviewed and no additional complaints, except as documented [facility] Past Medical History Medical History Afib Occurred following his aneurysm repair surgery without recurrence Aortic dissection, thoracic Arthritis Benign prostatic hyperplasia with urinary frequency Coronary artery disease Nonocclusive coronary disease noted on catheterization June 2012 with 50% left main disease and 40% ostial LAD disease noted on the catheterization at which time patient was diagnosed with the ascending aortic aneurysm dissection and was transferred to [place] Degenerative joint disease of knee Depression Dissecting ascending aortic aneurysm June 2012 Diverticulosis Dysthymia Essential hypertension Gout Left great toe Hyperlipidemia Hyperlipidemia LDL goal <100 Insomnia Lumbar burst fracture Obstructive sleep apnea Orthostatic hypotension PLMD (periodic limb movement disorder) Pulmonary embolism This is list under the history of her patient had denied this in the past Respiratory failure Sleep apnea Polysomnogram 2012 nasal CPAP with a pressure of 10 cm of water Stasis dermatitis of both legs Uncomplicated alcohol dependence Surgical History Surgical History History of right knee joint replacement History of thoracotomy To repair spontaneous ascending aortic aneurysm dissection June 2012 History of total left knee replacement With patellar resurfacing Hx of CABG Due to involvement of the origin of the LAD with his ascending aneurysm. Not due to Hx of cardiac cath Hx of tonsillectomy Has a child Perirectal abscess x2 Presence of IVC filter S/P total knee arthroplasty Family History Family History Other Diabetes mellitus Heart disease Social History Social History Social History: The patient has been for approximately 52 years.
== END 2020-06-03 20:34 | disposition home or self-care (01) ==
PROVIDERS: Emergency Provider Family Medicine; PCP Internal Medicine
DX: E86.0 Dehydration (principal); R41.82 Altered mental status, unspecified; F10.220 Alcohol dependence with intoxication, uncomplicated; Y90.5 Blood alcohol level of 100-119 mg/100 ml; I10 Essential (primary) hypertension; E78.5 Hyperlipidemia, unspecified; M19.90 Unspecified osteoarthritis, unspecified site; I25.10 Atherosclerotic heart disease of native coronary artery without angina pectoris; M17.10 Unilateral primary osteoarthritis, unspecified knee; M10.9 Gout, unspecified; G47.33 Obstructive sleep apnea (adult) (pediatric); Z86.711 Personal history of pulmonary embolism; G47.61 Periodic limb movement disorder; Z96.653 Presence of artificial knee joint, bilateral; Z95.1 Presence of aortocoronary bypass graft; F17.220 Nicotine dependence, chewing tobacco, uncomplicated; Z87.891 Personal history of nicotine dependence; Z79.82 Long term (current) use of aspirin; Z79.899 Other long term (current) drug therapy; I44.0 Atrioventricular block, first degree; I45.10 Unspecified right bundle-branch block
CPT/HCPCS: 36415; 70450; 80053; 80307; 81001; 83605; 83880; 84484; 85025; 85610; 93005; 96360; 96361; 99284; J7030

== ENCOUNTER 2020-06-13 10:45 | Emergency (ER) | payer MEDICARE, SELFPAY ==
[2020-06-13 10:55] VITALS: BP 131/70; PULSE 80; RESP 16; TEMP 36.6; O2SAT 96
--- NOTE | 2020-06-13 11:21 | ED.SKABFB ---
HPI - Skin/Abscess/Foreign Bdy General Chief complaint: Skin/Abscess/Foreign Body Stated complaint: rash Source: patient and RN notes reviewed Limitations: no limitations History of Present Illness HPI narrative: The patient, on several routine meds and prior skin history of cellulitis, presents with skin eruption. Patient states he has a least 1/2-month maybe 3-week history of pink, raised, itchy eruption on his trunk and extremities. This is associated with malar facial rash currently, and the rash began he feels on his lower extremities [like past cellulitis]. No fever, abscess/induration, streaking; discussed possible causes [infectious, acquired?SLE, other], and will treat broadly including with brief course of prednisone for itching. Related Data Home Medications Medication Instructions Recorded Confirmed lisinopril 20 mg PO HS 08/26/19 03/14/20 tamsulosin 0.4 mg PO HS 08/26/19 03/14/20 meloxicam 7.5 mg tablet 7.5 mg PO DAILY 04/13/20 aspirin 81 mg tablet,delayed 81 mg PO DAILY 05/31/20 release Allergies Allergy/AdvReac Type Severity Reaction Status Date / Time shellfish derived Allergy Severe Swelling Verified 05/24/20 13:19 levofloxacin Allergy Mild Rash Verified 05/24/20 13:19 Review of Systems Review of Systems: Narrative: General/Constitutional: No weight loss,fever Eyes: N0: Redness,discharge Ears/Nose/Throat: No: Epistaxis,ear discharge Respiratory: Denies: Hemoptysis Gastrointestinal: No Vomiting, Bleeding-rectal Skin: No Lumps, REPORTS eruption Neurologic: No Focal Weakness,Sz Hematologic: Denies: Petechiae/Purpura Psychiatric: No: Suicida ideationl All Other Systems: Reviewed and Negative [facility] Social History Social History Social History: The patient has been for approximately 52 years. He lives in [place]. 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 He drinks between 4-5 beers a day. He is a former smoker. He smoked a pack of cigarettes per day but quit approximately 30 years ago. He did start chewing tobacco in snuff. Uses about a can of snuff per week. He has 2 daughters and is and lives with his . His brother Gregory is his durable power collections attorney for healthcare. Primary care physician is Dr. Remi Pop. 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 Gender identity (if verbalized by the patient): Male Spiritual care concerns: No Agree to blood products: Yes Exam Narrative: Exam Narrative: General Appearance: Obese/well-nourished, Cooperative Head: Normocephalic Eye: PERRLA, Conjunctiva clear Ear: External ear normal Nose: Normal nose, Nare clear, well demarcated malar rash of face Mouth/Throat: Normal appearing Neck Exam: Supple Respiratory: Airway patent, No respiratory distress Musculoskeletal: Moves all extremities, Non tender Skin: Warm, Dry pink, raised, macular papular eruption of the extremities Neurological: A&O x3 Psychiatric: Normal mood, Normal affect Course Vital Signs Vital signs: Vital Signs Temperature 98 F 06/13/20 10:55 Pulse Rate 80 06/13/20 10:55 Respiratory Rate 16 06/13/20 10:55 Blood Pressure 131/70 06/13/20 10:55 Pulse Oximetry 96 06/13/20 10:55 Temperature 98 F 06/13/20 10:55 Pulse Rate 80 06/13/20 10:55 Respiratory Rate 16 06/13/20 10:55 Blood Pressure 131/70 06/13/20 10:55 Pulse Oximetry 96 06/13/20 10:55 Discharge Plan Discharge Clinical Impression: Malar rash, Pruritic condition Patient Dispositi
== END 2020-06-13 11:25 | disposition home or self-care (01) ==
PROVIDERS: Emergency Provider Emergency Medicine; PCP Internal Medicine
DX: L29.9 Pruritus, unspecified (principal); F17.220 Nicotine dependence, chewing tobacco, uncomplicated; Z79.82 Long term (current) use of aspirin; I48.91 Unspecified atrial fibrillation; E78.00 Pure hypercholesterolemia, unspecified; I10 Essential (primary) hypertension; N40.0 Benign prostatic hyperplasia without lower urinary tract symptoms; G47.30 Sleep apnea, unspecified; Z96.653 Presence of artificial knee joint, bilateral; F32.9 Major depressive disorder, single episode, unspecified
CPT/HCPCS: 99213; G0463

== ENCOUNTER 2020-06-18 08:00 | Outpatient (RCR) | payer MEDICARE, SELFPAY ==
--- NOTE | 2020-04-03 09:59 | PTOPEVAL ---
Thank you for referring Matt Bar to [facility]. Please review, sign, date and return this plan of care KEE. Pt referred to therapy to address impairments related to left TKR on 03/14/20. He demonstrates decreased knee range, LE weakness, and decreased performance with functional mobility. He requires additional skilled therapy 2-3x/wk x 6 wk to achieve therapy goals and allow pt to return to normal level of function. I agree with and certify that the following plan of care is medically necessary. Referring Physician Date Attending Provider: Michele Joel MD *PT Outpatient Evaluation Start: 04/03/20 08:43 Freq: Status: Active Protocol: Document 04/03/20 08:43 CAP (Rec: 04/03/20 09:51 CAP [email or web address]) Therapy Assessment Status Assessment Status Assessment Status Evaluation Outpatient Past Medical History Past Medical History Source of Past Medical History Patient,Recalled from Previous Visit, Confirmed with Patient /Family Neurological History Hx Neurological Disorders No Significant History Cardiovascular History Hx Atrial Fibrillation Yes Hx Cardiac Surgery Yes: 2011 AORTIC DISSECTION AT [facility] Hx Hypercholesterolemia Yes Hx Hypertension Yes Hx Other Cardiac Disorders Yes: DR SHINE LAST SEEN FEBRUARY 2019. CURRENTLY TRANSFERING TO DR MCKEON. Respiratory History Hx Sleep Apnea Yes: USES CPAP Gastrointestinal History Hx Gastrointestinal Disorders No Significant History Genitourinary History Hx Benign Prostatic Hyperplasia Yes Musculoskeletal History Hx Arthritis Yes: GENERALIZED Hx Back Pain Yes: STATES HAS FX L3 Hx Joint Replacement Yes: 2007 RTKA, left TKR Hx Other Musculoskeletal Disorders Yes: OA LT KNEE Hematological History Hx Hematological Disorders No Significant History Endocrine History Hx Endocrine Disorders No Significant History HEENT History Hx Tonsillectomy Yes Integumentary History Hx Cellulitis Yes: BILAT Reproductive History Hx Reproductive Disorders No Significant History Psychosocial History Hx Depression Yes Pain History Has Past Pain Affected Your Daily Life Yes: LT KNEE AND BACK PAIN Anesthesia History Hx Anesthesia Reactions No Significant History Evaluation Information Problem Diagnosis left TKR Onset 03/14/20 Cause OA Subjective Information Pt is s/p left TKR on 03/14/20. Query Text:As Reported By Patient/ He is using a cane as needed Family for home and community
--- NOTE | 2020-05-03 08:57 | PTOPEVAL ---
Thank you for referring Matt Bar to [facility]. Please review, sign, date and return this plan of care KEE. Pt has received 8 therapy visits to address impairments related to his knee. He is progressing towards therapy goals. Recommend additional PT 2x/wk x 3 wk. I agree with and certify that the following plan of care is medically necessary. Referring Physician Date Admitting Provider: Attending Provider: Michele Joel MD PT re-evaluation update *PT Outpatient Evaluation Start: 04/03/20 08:43 Freq: Status: Active Protocol: Document 05/03/20 07:59 CAP (Rec: 05/03/20 08:35 CAP [email or web address]) Therapy Assessment Status Assessment Status Assessment Status Re-evaluation Evaluation Information Problem Diagnosis left TKR Onset 03/14/20 Cause OA Additional Evaluation Detail Pt is s/p left TKR on 03/14/20. He has a fracture of his low back since 04/22 with unknown cause. Subjective Information He reports more pain in his Query Text:As Reported By Patient/ back then his knee. He reports Family improved elisa with standing and walking. He is not using an AD with walking. He does not require pain medication to manage his pain. He cont to use ice and TENS unit for his pain and swelling. Pain Assessment Timing of Pain Assessment Timing of Pain Assessment Pre-Treatment Pain Scale Pain Scale Used Numeric (1 - 10) Self Report Pain Assessment Left Lower Back Reported Pain Level 4 Pain Description Aching,Tender on Palpation, Tightness Pain Frequency Continuous Lowest Pain Intensity 4 Greatest Pain Intensity 4 Pain Behaviors None Left Knee(s) Reported Pain Level 1 Pain Description Aching Lowest Pain Intensity 1 Greatest Pain Intensity 2 Pain Score Pain Score 4,1: Self Report Lower Extremity Range of Motion Knee Range of Motion Right Knee Flexion Range of Motion - Active 130 Knee Extension Range of Motion - Active 0 Query Text: Left Knee Flexion Range of Motion - Active 128 Knee Extension Range of Motion - Active -5 Query Text: Knee Extension Range of Motion - Passive 0 Knee Range of Motion Limitations Edema,Pain,Soft Tissue Restriction Lower Extremity Muscle Strength Testing Hip Strength Bilateral Hip Flexion Strength 4+ Good +
--- NOTE | 2020-05-09 09:08 | PCPTNOTE ---
Patient did not show up for scheduled appointment this date; when calling patient reminding about appointment for Thursday he stated he didn't realize he had a scheduled appointment for today.
--- NOTE | 2020-05-25 11:51 | PTOPEVAL ---
Thank you for referring Matt Bar to [facility].? Pt has received 13 therapy visits to address impairments related to left TKR. He has reached maximal potential with impairments related to his knee. Will perform evaluation to address his back on 05/29/20. Please review, sign, date and return this plan of care KEE. I agree with and certify that the following plan of care is medically necessary. Referring Physician Date Attending Provider: Michele Joel MD Physical Therapy progress note for knee *PT Outpatient Evaluation Start: 04/03/20 08:43 Freq: Status: Active Protocol: Document 05/25/20 09:02 CHACHA (Rec: 05/25/20 09:45 [facility] [email or web address]) Therapy Assessment Status Assessment Status Assessment Status Re-evaluation Evaluation Information Problem Diagnosis left TKR Onset 03/14/20 Cause OA Additional Evaluation Detail Pt is s/p left TKR on 03/14/20. He has a fracture of his low back since 04/22 with unknown cause. Subjective Information He cont to report more pain in Query Text:As Reported By Patient/ his back then his knee. Family States his right knee is more painful than his left knee. He reports cont use of TENS unit for pain. He is performing his HEP daily. Pain Assessment Timing of Pain Assessment Timing of Pain Assessment Re-assessment Pain Scale Pain Scale Used Numeric (1 - 10) Self Report Pain Assessment Left Lower Back Reported Pain Level 4 Pain Description Aching,Tender on Palpation, Tightness Left Knee(s) Reported Pain Level 0 Lowest Pain Intensity 0 Greatest Pain Intensity 0 Pain Score Pain Score 4,0: Self Report Lower Extremity Range of Motion Knee Range of Motion Left Knee Flexion Range of Motion - Active 128 Knee Extension Range of Motion - Active -2 Query Text: Knee Extension Range of Motion - Passive 0 Lower Extremity Muscle Strength Testing Hip Strength Bilateral Hip Flexion Strength 5 Normal Hip Extension Strength 4+ Good + Hip Abduction Strength 3+ Fair + Knee Strength Right Knee Flexion Strength 5 Normal Knee Extension Strength 5 Normal Left Knee Flexion Strength 5 Normal Knee Extension Strength 5 Normal Palpation Assessment Palpation Palpation severe tenderness left glut med, QL slight tenderness of left m
--- NOTE | 2020-05-29 13:17 | PTOPEVAL ---
Thank you for referring Matt Bar to [facility].? The patient is scheduled to be seen for therapy? 2 x/week for 6 weeks. Please review, sign, date and return this plan of care KEE. I agree with and certify that the following plan of care is medically necessary. Referring Physician Date Attending Provider: Remi Pop MD Physical Therapy evaluation for back *PT Outpatient Evaluation Start: 04/03/20 08:43 Freq: Status: Active Protocol: Document 05/29/20 09:44 CAP (Rec: 05/29/20 10:49 CAP [email or web address]) Therapy Assessment Status Assessment Status Assessment Status Evaluation Outpatient Past Medical History Past Medical History Source of Past Medical History Patient,Recalled from Previous Visit, Confirmed with Patient /Family Neurological History Hx Neurological Disorders No Significant History Cardiovascular History Hx Atrial Fibrillation Yes Hx Cardiac Surgery Yes: [address] [facility] Hx Hypercholesterolemia Yes Hx Hypertension Yes Hx Other Cardiac Disorders Yes: DR SHINE LAST SEEN FEBRUARY 2019. CURRENTLY TRANSFERING TO DR MCKEON. Respiratory History Hx Sleep Apnea Yes: USES CPAP Gastrointestinal History Hx Gastrointestinal Disorders No Significant History Genitourinary History Hx Benign Prostatic Hyperplasia Yes Musculoskeletal History Hx Arthritis Yes: GENERALIZED Hx Back Pain Yes: STATES HAS FX L3 Hx Joint Replacement Yes: 2008 RTKA, left TKR Hx Other Musculoskeletal Disorders Yes: OA LT KNEE Hematological History Hx Hematological Disorders No Significant History Endocrine History Hx Endocrine Disorders No Significant History HEENT History Hx Tonsillectomy Yes Integumentary History Hx Cellulitis Yes: BILAT Reproductive History Hx Reproductive Disorders No Significant History Psychosocial History Hx Depression Yes Pain History Has Past Pain Affected Your Daily Life Yes: LT KNEE AND BACK PAIN Anesthesia History Hx Anesthesia Reactions No Significant History Evaluation Information Problem Diagnosis back pain with stable burst fracture Onset 04/22 Cause fracture Additional Evaluation Detail recently received therapy to address impairments related to TKR. Subjective Information He reports his back pain Query Text:As Reported By Patient/ started in 04/22 with the back Family
--- NOTE | 2020-06-18 11:56 | PTOPEVAL ---
Thank you for referring Matt Bar to [facility].? Pt has received 6 therapy visits to address his back pain. He demonstrates improved trunk range without changes in pain. But no changes in soft tissue restriction of left low back region. He has reached maximal potential with skilled therapy services at this time. DC skilled therapy services at this time. Please review, sign, date and return this plan of care KEE. I agree with and certify that the following plan of care is medically necessary. Referring Physician Date Admitting Provider: Attending Provider: Michele Joel MD Discharge Note *PT Outpatient Evaluation Start: 04/03/20 08:43 Freq: Status: Active Protocol: Document 06/18/20 07:58 CHACHA (Rec: 06/18/20 08:58 CHACHA [id number]) Therapy Assessment Status Assessment Status Assessment Status Discharge Evaluation Information Problem Diagnosis back pain with stable burst fracture Onset 04/22 Cause fracture Additional Evaluation Detail recently received therapy to address impairments related to TKR. He reports his back pain started in 04/22 with the back fracture. Subjective Information He does not feel therapy is Query Text:As Reported By Patient/ making a difference with his Family pain. Reports a constant, dull pain of his left-center low back region. He reports continued increased pain with bending, lifting objects off floor, prolonged standing. He is able to elisa walking and negoitating steps with decreased pain. States his knees feel great. He is limited with his recreational activities due to the pain. He is performing the HEP without changes in pain. He is using Blue cream on his knees at home. Pain Assessment Timing of Pain Assessment Timing of Pain Assessment Re-assessment Pain Scale Pain Scale Used Numeric (1 - 10) Self Report Pain Assessment Left Lower Back Reported Pain Level 4 Pain Description Aching,Dull Pain Frequency Chronic,Continuous Lowest Pain Intensity 3 Greatest Pain Intensity 4 Pain Aggravating Factors Bending,Lifting Pain Behaviors None
== END 2020-06-19 14:21 | disposition home or self-care (01) ==
LOC: ANHPT 08:00
PROVIDERS: PCP Internal Medicine; Visit Provider Orthopaedic Surgery
DX: Z47.1 Aftercare following joint replacement surgery (principal); Z96.652 Presence of left artificial knee joint
CPT/HCPCS: 97014; 97035; 97110; 97112; 97140; 97161; 97162; 97530; G0283

== ENCOUNTER 2020-07-23 01:07 | Outpatient (CLI) | payer MEDICARE, SELFPAY ==
[2020-07-23 17:41] LABS: SARS-CoV-2 RNA PCR Negative
== END 2020-07-23 01:08 | disposition home or self-care (01) ==
LOC: ANHCOVIDDT 01:08
PROVIDERS: PCP Internal Medicine; Visit Provider Internal Medicine Critical Care Medicine
DX: Z01.812 Encounter for preprocedural laboratory examination (principal); Z20.828 Contact with and (suspected) exposure to other viral communicable diseases
CPT/HCPCS: 87635; C9803; U0003

== ENCOUNTER 2020-07-25 07:15 | Outpatient (CLI) | payer MEDICARE, SELFPAY ==
--- NOTE | 2020-08-21 13:37 | WPDSLEEPSTUD ---
Sleep Study Date of Study: 07/25/20 Ordering Provider: Jeanne Meyers MD Interpreting Physician: Jeanne Meyers MD Sleep Study Type: CPAP Titration Height: 1.79 m Weight: 107.501 kg Body Mass Index: 33.5 Neck Circumference: 45.72 cm Donnellson: 6 Reason for Sleep Study He needs to have repeat CPAP titration as his equipment is old, and his symptoms have worsened. Sleep History Matt Bar is a 75 yo man with BEATRIZ, has been on CPAP for years. His current device is old, and he does not get compliance evaluation. He says that he has never used an SD card to check his compliance. His DME is [facility]. Since early in 2019, he has not been able to fall asleep at the usual time. There were no significant life changes. His falls asleep quickly after getting in bed and she is comfortably snoring while he watches television from 9:00 pm until 1:00- 2:00 a.m. He wakes in the morning around 7:00 or 8:00 a.m. He does not drink excessive amounts of caffeine. He started using Clonazepam started April 2020 which has not helped him get to sleep any earlier. He does have restlessness in his legs before bed, and his says that he kicks while he is asleep. He wakes with a dry mouth. He does have dreams. He has nocturia at least 3-4 times a night. Tamsulosin is not helping at all. He tosses and turns constantly. He is tired in the day but absolutely denies taking naps. He has had both knees replaced, Left knee more recently. He is also on citalopram for depression. This can cause worsening of limb movements at night. He snores loudly, he is not refreshed in the morning but he does not get tired in the day and he does not take naps. He occasionally has trouble sleeping with a cold, occasionally wakes up gasping for breath at night. He frequently has breathing problems at night observed by his . Occasionally sweats excessively at night. He does not notice his heart pounding or beating irregularly at night, denies falling asleep involuntarily during the day especially while driving. He does not have loss of muscle tone was strong emotion, does not have dysfunction in the daytime due to excessive sleepiness does not feel paralyzed on waking or falling asleep. He rarely has vivid dreamlike scenes upon awakening or falling asleep. He is never afraid to go to sleep. he occasionally has nightmares, occasional remembers his dreams, rarely has racing thoughts. He occasionally feels sad, depressed, anxious and occasionally has muscular tension. He frequently notices parts of his body jerking, frequently kicks at night feelings in his legs and leg pain at night. He occasionally grinds his teeth at night. He frequently is bothered by pain during the day, rarely is awakened by pain at night. He occasionally wakes up feeling stiff in the morning, rarely with sore achy muscles are pain in the neck and spine. He has dizziness, heavy alcohol use. Habits: Previously smoked. Caffeine 1 cup a day. Alcohol 5 beers or so daily. DATA: * 03/21/2013- CPAP retitration; optimal pressure 10 cm, severe myoclonus; weight was 218 lb * 07/30/2000- split night study, severe obstructive sleep apnea, optimal pressure 14 cm. [facility] Past Medical History Medical History Afib Occurred following his aneurysm repair surgery without recurrence Aortic dissection, thoracic Arthritis Benign prostatic hyperplasia with urinary frequency Coronary artery disease Nonocclusive coronary disease noted on catheterization June 2012 with 50% left main disease and 40% ostial LAD disease noted on the catheterization at which time patient was diagnosed with the ascending aortic aneurysm dissection and was transferred to [place] Degenerative joint disease of knee Depression Dissecting ascending aortic aneurysm June 2012 Diverticulosis Dysthymia Essential hypertension Gout Left great toe Hyperlipide
[2020-08-22 15:44] VITALS: BMI 33.5
== END 2020-07-25 07:16 | disposition home or self-care (01) ==
LOC: ANHCSM 07:15
PROVIDERS: PCP Internal Medicine; Visit Provider Internal Medicine Critical Care Medicine
DX: G47.33 Obstructive sleep apnea (adult) (pediatric) (principal)
CPT/HCPCS: 95811

== ENCOUNTER 2022-06-30 08:26 | Outpatient (CLI) | payer MEDICARE, SELFPAY ==
--- NOTE | ~2022-06-30 | CT_ITS ---
EXAMINATION: CT knee RT wo con DATE: 06/30/2022 08:50 INDICATION: Right knee pain TECHNIQUE: High resolution computed tomography (CT) of the right knee was performed without intraveno us contrast. Additional sagittal and coronal reconstructions were performed. Automated exposure contr ol and iterative reconstruction technique were employed. The dose-length product was 461.42 mGy-cm. COMPARISON: Right knee radiographs dated 03/10/2022, 09/07/2020 and 11/24/2019 FINDINGS: Right total knee arthroplasty without patellar resurfacing which is in near-anatomic alignment. No fr acture. The distal tips of the 4 fixation screws of the tibial component each appear to project minim ally beyond the cortical margin of the proximal tibial metaphysis. There is a small amount of lucency with thin corticated margins surrounding the distal tips of the 2 medial sided screws of the tibial component. This appears to been present and without significant change on the prior radiographs from both 03/10/2022 and from 09/07/2020 and 11/24/2019. No lucency surrounding the central post of the tibial component or the 2 lateral sided screws. On the prior radiographs there is narrowing of the joint sp adan between the femoral component and the cortex of the medial patellar facet suggesting chondromalac ia along the medial patellar facet which appears unchanged between 2019 and 2021. This joint space na rrowing is obscured unable on the current CT images due to the metallic streak artifact from the femo ral component. No knee joint effusion or other abnormal fluid collections. Some atherosclerotic calcific location al luis the popliteal artery sulci/proximal portion of the tibioperoneal trunk, anterior and posterior ti bial and peroneal arteries. Soft tissues are unremarkable. No evident inflammatory stranding surround ing the extraosseous distal tips of the fixation screws of the tibial component. IMPRESSION: 1. Right total knee arthroplasty in expected alignment with minimal lucency surrounding the distal mo st tips of the 2 medial sided screws which appears stable since 11/24/2019 which is of doubtful signif icance. No right knee joint effusion or acute osseous abnormality. 2. 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 Reviewed, dictated and finalized at location A. IMPRESSION: 1. Right total knee arthroplasty in expected alignment with minimal lucency aleja rounding the distal most tips of the 2 medial sided screws which appears stable since 11/24/2019 which is of doubtful significance. No right knee joint effusio n or acute osseous abnormality. 2. 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
== END 2022-06-30 08:27 | disposition home or self-care (01) ==
PROVIDERS: PCP Family Medicine; Visit Provider Orthopaedic Surgery
DX: T84.84XA Pain due to internal orthopedic prosthetic devices, implants and grafts, initial encounter (principal); Z96.651 Presence of right artificial knee joint; M25.561 Pain in right knee
CPT/HCPCS: 73700

== ENCOUNTER 2022-10-31 10:19 | Outpatient (CLI) | payer MEDICARE, SELFPAY ==
[2022-10-31 19:52] LABS: Basophils Absolute Auto 0.2 K/mm3 (0.0-0.1); Eosinophils Absolute Auto 0.2 K/mm3 (0-0.3); Eosinophils Percent Auto 2.5 % (0-4.4); Hematocrit 40.5 % (42.0-52.0); Hemoglobin 13.7 g/dL (14.0-18.0); Immature Granulocyte Absolute 0.04 K/mm3 (0.00-0.031); Immature Granulocyte Percent A 0.5 % (0-0.5); Lymphocytes Absolute Auto 1.13 K/mm3 (0.9-3.2); Lymphocytes Percent Auto 13.1 % (18.3-44.2); Mean Corpuscular HGB Conc 33.8 g/dl (32-36); Mean Corpuscular Hemoglobin 33.2 pg (26-34); Mean Corpuscular Volume 98.1 fl (80-100); Mean Platelet Volume 9.7 fl (7.4-10.4); Monocytes Absolute Auto 0.7 K/mm3 (0.1-0.6); Monocytes Percent Auto 7.9 % (2.6-8.5); Neutrophils Absolute Auto 6.4 K/mm3 (1.3-6.7); Platelet Count Result 216 k/mm3 (150-375); Red Blood Count 4.13 M/mm3 (4.6-6.20); Red Cell Distribution Width 12.4 % (11.5-14.5); White Blood Count 8.6 K/mm3 (4.5-10.0)
[2022-10-31 19:55] LABS: Alanine Aminotransferase 41 U/L (6-50); Alkaline Phosphatase 60 U/L (38-126); Anion Gap 3 mmol/L (8-16); Aspartate Amino Transferase 36 U/L (17-59); Bilirubin,Total 0.6 mg/dL (0.2-1.3); Blood Urea Nitrogen 15 mg/dL (9-20); Calcium 8.9 mg/dL (8.4-10.2); Carbon Dioxide 33 mmol/L (22-30); Chloride 98 mmol/L (98-107); Cholesterol 223 mg/dL (0-200); Estimated Glomerular Filt Rate > 60; Glucose 129 mg/dL (65-110); HDL Direct 89 mg/dL; Potassium 4.6 mmol/L (3.4-5.0); Sodium 134 mmol/L (137-145); Triglycerides 153 mg/dL (<150); Uric Acid 5.8 mg/dL (3.5-8.5)
[2022-10-31 20:06] LABS: LDL Cholesterol Direct 97 mg/dL
== END 2022-10-31 10:20 | disposition home or self-care (01) ==
LOC: ANHGOSHLAB 10:21
PROVIDERS: PCP Family Medicine; Visit Provider Family Medicine
DX: E78.5 Hyperlipidemia, unspecified (principal); I10 Essential (primary) hypertension; R53.83 Other fatigue; M10.9 Gout, unspecified
CPT/HCPCS: 36415; 80053; 80061; 84550; 85025

== ENCOUNTER → 2023-04-02 10:12 | Outpatient (CLI) | payer MEDICARE, SELFPAY ==
--- NOTE | ~2023-04-02 | XR_ITS ---
EXAMINATION: XR lumbar spine 6V w bending DATE: 04/02/2023 10:37 INDICATION: Low back pain TECHNIQUE: Anteroposterior, lateral in neutral, flexion and extension, and bilateral oblique views of the lumbar spine, and cone-down lateral view of the lumbosacral junction were obtained. COMPARISON: MRI, 09/22/2019 FINDINGS: There is severe loss of intervertebral disc space height at L2-3 and L5-S1 without signific ant change. There is a chronic burst fracture of L3 with loss of central vertebral body height. No ac fabrice fracture is identified. There is no hypermobility with flexion or extension. There is severe face t joint osteoarthritis throughout the lumbar spine. Calcified atherosclerosis is noted. There is an I VC filter with anterior positioning of the upper filter greater than the expected contour of the infe rior vena cava. IMPRESSION: 1. Chronic L3 burst fracture and severe lumbar spondylosis without acute findings or significant inte rval change. 2. Possible malpositioned inferior vena cava filter. Reviewed, dictated and finalized at location L. IMPRESSION: 1. Chronic L3 burst fracture and severe lumbar spondylosis without acute findin gs or significant interval change. 2. Possible malpositioned inferior vena cava filter.
== END ==
PROVIDERS: PCP Anesthesiology Pain Medicine; Visit Provider Anesthesiology Pain Medicine
DX: M47.897 Other spondylosis, lumbosacral region (principal); S32.031A Stable burst fracture of third lumbar vertebra, initial encounter for closed fracture; X58.XXXA Exposure to other specified factors, initial encounter
CPT/HCPCS: 72114

== ENCOUNTER → 2023-04-22 14:32 | Outpatient (CLI) | payer MEDICARE, SELFPAY ==
--- NOTE | ~2023-04-22 | XR_ITS ---
EXAM: XR knee RT 3V DATE: 04/22/2023 15:08 HISTORY: S89.91XA - Unspecified injury of right lower leg, initial... . COMPARISON: 03/10/2022, images only. FINDINGS: Decreased mineralization. Uncomplicated appearing right total knee arthroplasty hardware. Small knee joint effusion. Vascular calcifications. Comminuted, mildly displaced fracture of the righ t fibular head. No lytic or blastic lesion. Joint spaces are maintained. No erosion or periosteal malia nge. Soft tissues within normal limits. IMPRESSION: Comminuted, mildly displaced right fibular head fracture. Reviewed, dictated and finalized at location K.
== END ==
PROVIDERS: PCP Anesthesiology Pain Medicine; Referring Provider Orthopaedic Surgery; Visit Provider Family Medicine
DX: S82.451D Displaced comminuted fracture of shaft of right fibula, subsequent encounter for closed fracture with routine healing (principal); X58.XXXD Exposure to other specified factors, subsequent encounter
CPT/HCPCS: 73562

== ENCOUNTER 2023-05-22 09:16 | Outpatient (CLI) | payer MEDICARE, SELFPAY ==
[2023-05-22 18:30] LABS: Anion Gap 6 mmol/L (8-16); Blood Urea Nitrogen 17 mg/dL (9-20); Calcium 9.4 mg/dL (8.4-10.2); Carbon Dioxide 27 mmol/L (22-30); Chloride 88 mmol/L (98-107); Estimated Glomerular Filt Rate > 60; Glucose 114 mg/dL (65-110); Potassium 4.6 mmol/L (3.4-5.0); Sodium 121 mmol/L (137-145)
[2023-05-22 18:59] LABS: Prostate Specific Antigen 3.3 ng/mL (< OR = 4.0)
== END 2023-05-22 09:17 | disposition home or self-care (01) ==
PROVIDERS: Internal Medicine; PCP Family Medicine; Visit Provider Family Medicine
DX: M10.9 Gout, unspecified (principal); Z12.5 Encounter for screening for malignant neoplasm of prostate
CPT/HCPCS: 36415; 80048; 84153; G0103

== ENCOUNTER 2023-06-05 11:05 | Outpatient (CLI) | payer MEDICARE, SELFPAY ==
[2023-06-05 13:30] LABS: Anion Gap 10 mmol/L (8-16); Blood Urea Nitrogen 20 mg/dL (9-20); Carbon Dioxide 25 mmol/L (22-30); Chloride 96 mmol/L (98-107); Estimated Glomerular Filt Rate > 60; Glucose 95 mg/dL (65-110); Potassium 4.6 mmol/L (3.4-5.0); Sodium 131 mmol/L (137-145)
== END 2023-06-05 11:06 | disposition home or self-care (01) ==
PROVIDERS: PCP Family Medicine; Visit Provider Family Medicine
DX: E87.1 Hypo-osmolality and hyponatremia (principal)
CPT/HCPCS: 36415; 80048

== ENCOUNTER 2023-07-08 08:30 | Outpatient (RCR) | payer MEDICARE, SELFPAY ==
--- NOTE | 2023-05-25 10:51 | PTOPEVAL1 ---
Assessment and note entered by Hayden Moreno, PT Evaluation Information Assessment Status Evaluation Diagnosis R knee pain, back pain, R hip pain Onset Chronic pain Subjective Information Patient reports R knee pain since the knee replacement in 2007, but also had a fall resulting in the R fibular head around April 15 2023. The patient also has pain in his R hip and back which he attributes to compensating for the R knee. Patient is wearing a hinged knee sleeve which has duct tape keeping it together at this time. Patient walks in using a straight cane on the R side, (Physical therapist recommended switching to the L side and patient declines stating he feels more comfortable with it on the R side). Patient reports pain is always there, but worst at the night and that it just throbs throughout the night resulting in poor sleep. Reported Pain Level Pain Score 5: Self Report Assessment PT Clinical Summary Matt is a 78 year old male coming into the clinic with a diagnosis of R knee, hip, and back pain. Patient has tightness in both hamstring with less flexibility to the R side. Weakness in JURGEN hip abduction and extension. Physical therapy will work on increasing flexibility to the hamstring and strengthening the hips and back to take more stress off of the knee. Manual and modalities as needed for pain control. Plan of Care Interventions Electrical Stimulation,Gait Training,Hot Pack/Cold Pack,Manual Therapy,Neuro Re-education,Patient/ Caregiver Education,Therapeutic Activities, Therapeutic Exercise,Ultrasound Other Interventions cupping, taping, IASTM PT Services Indicated Yes Treatment Frequency and 1x/wk for 4 visits Duration These treatments will address the objective and functional deficits as defined above. The patient will be advanced safely and appropriately in order for the patient to progress towards his/her prior level of function. Additional exercises will be introduced and as well as a comprehensive home exercise program upon discharge, if needed, ?to ensure carryover of functional gains achieved in the clinic. This treatment plan has been reviewed and agreement upon by the patient.
--- NOTE | 2023-05-25 10:51 | OPREHPOC ---
Outpatient Therapy Plan of Care This is a Multidisciplinary Plan of Care that may contain components documented by all disciplines (PT, OT, and ST.) PT Problem 1 PT Problem #1 Knowledge Deficit PT Goal 1 Goal Independent with HEP Target Visit 4 PT Problem 2 PT Problem #2 Pain PT Goal 1 Goal decrease pain to 3/10 at baseline Target Visit 4 PT Problem 3 PT Problem #3 Impaired Flexibility PT Goal 1 Goal -30 degrees R hamstrings Target Visit 4 PT Problem 4 PT Problem #4 Impaired Strength PT Goal 1 Goal 4+/5 JURGEN hip extension and abduction Target Visit 4
--- NOTE | 2023-06-22 09:13 | OPREHPOC ---
Outpatient Therapy Plan of Care This is a Multidisciplinary Plan of Care that may contain components documented by all disciplines (PT, OT, and ST.) PT Problem 1 PT Problem #1 Knowledge Deficit PT Goal 1 Goal Independent with HEP Target Visit 4 Progress Partially Met Comment Still needs reinforcement PT Problem 2 PT Problem #2 Pain PT Goal 1 Goal decrease pain to 3/10 at baseline Target Visit 4 Progress Partially Met Comment Improvement still needed PT Problem 3 PT Problem #3 Impaired Flexibility PT Goal 1 Goal -30 degrees R hamstrings Target Visit 4 Progress Partially Met Comment Improved but not yet to goal. Still lacking. PT Problem 4 PT Problem #4 Impaired Strength PT Goal 1 Goal 4+/5 JURGEN hip extension and abduction Target Visit 4 Progress Partially Met Comment Improved but still showing need for improvement. PT Problem 5 PT Problem #5 Impaired Range of Motion PT Goal 1 Goal Improve jurgen ankle DF ROM to 15 degrees to help achieve terminal stance phase bilaterally Target Visit 8 PT Goal 2 Goal Improve jurgen hip abduction ROM to 40 degrees to reduce impingement of hip Target Visit 8
--- NOTE | 2023-06-22 09:17 | PTOPPROG ---
Assessment and note entered by Addison Stubbs, PT Evaluation Information Assessment Status Evaluation Diagnosis R knee pain, back pain, R hip pain Onset Chronic pain Subjective Information Patient reports that he does not feel he has made much progress at this point. He is still getting a lot of pain in his medial knee. With distraction he notes pain moving to back and less in hip. He is very discouraged but willing to try whatever he needs to to get better. Assessment PT Clinical Summary Patient showing deficits in hip and ankle ROM which is likely contributing to knee deficits. He objectively is improved with gross knee mobility and strength. Will benefit from skilled therapy to continue to address hip and ankle deficits which are likely contributing to increased structural knee stress. Plan of Care Interventions Electrical Stimulation,Gait Training,Hot Pack/Cold Pack,Manual Therapy,Neuro Re-education,Patient/ Caregiver Education,Therapeutic Activities, Therapeutic Exercise,Ultrasound Other Interventions cupping, taping, IASTM PT Services Indicated Yes Treatment Frequency and 1x/wk for 4 visits Duration These treatments will address the objective and functional deficits as defined above. The patient will be advanced safely and appropriately in order for the patient to progress towards his/her prior level of function. Additional exercises will be introduced and as well as a comprehensive home exercise program upon discharge, if needed, ?to ensure carryover of functional gains achieved in the clinic. This treatment plan has been reviewed and agreement upon by the patient.
--- NOTE | 2023-07-23 08:27 | PCPTNOTE ---
Patient was No Show for today's appointment.
--- NOTE | 2023-08-10 14:11 | PTOPDC ---
Assessment and note entered by Addison Stubbs, PT Discharge Information Assessment Status Discharge - Pt Not Present Diagnosis R knee pain, back pain, R hip pain Onset Chronic pain Subjective Information Patient reports that he does not feel he has made much progress at this point. He is still getting a lot of pain in his medial knee. With distraction he notes pain moving to back and less in hip. He is very discouraged but willing to try whatever he needs to to get better. Assessment PT Clinical Summary Patient last present for therapy on 07/11/23. Patient has failed to return and will be discharged to [facility] at this time. Please refer to last treatment note for D/C status. Plan of Care D/C to [facility]
== END 2023-08-10 14:47 | disposition home or self-care (01) ==
LOC: ANHPT 08:30
PROVIDERS: PCP Family Medicine; Visit Provider Anesthesiology Pain Medicine
DX: M54.50 Low back pain, unspecified (principal); Z96.651 Presence of right artificial knee joint; M70.51 Other bursitis of knee, right knee; M25.561 Pain in right knee; M47.817 Spondylosis without myelopathy or radiculopathy, lumbosacral region
CPT/HCPCS: 97014; 97110; 97161; 99199; G0283

== ENCOUNTER → 2023-07-17 14:06 | Outpatient (CLI) | payer MEDICARE, SELFPAY ==
--- NOTE | ~2023-07-17 | XR_ITS ---
EXAMINATION: XR elbow LT 2V INDICATION: Left elbow pain and swelling TECHNIQUE: Two views of the left elbow were obtained. COMPARISON: None available FINDINGS: Bone alignment is normal. There is no fracture. There is moderate osteoarthritis of the elb ow. No joint effusion is identified. There is posterior soft tissue swelling overlying the distal hum erus and proximal forearm. IMPRESSION: 1. No acute osseous abnormality. Reviewed, dictated and finalized at location B.
== END ==
PROVIDERS: PCP Family Medicine; Visit Provider Family Medicine
DX: M25.522 Pain in left elbow (principal); M79.89 Other specified soft tissue disorders
CPT/HCPCS: 73070

== ENCOUNTER → 2023-07-17 14:09 | Outpatient (CLI) | payer MEDICARE, SELFPAY ==
--- NOTE | ~2023-07-17 | XR_ITS ---
EXAMINATION: XR hip BI 2V w AP pelvis DATE: 07/17/2023 14:34 INDICATION: Bilateral hip pain TECHNIQUE: AP view the pelvis and two views of each hip were obtained. COMPARISON: None. FINDINGS: Bone alignment is normal. There is a fracture. There is mild osteoarthritis of the hips. Montejo rgical clips are noted in the medial left thigh. IMPRESSION: 1. No acute osseous abnormality. Reviewed, dictated and finalized at location B.
== END ==
PROVIDERS: PCP Anesthesiology Pain Medicine; Visit Provider Anesthesiology Pain Medicine
DX: M25.551 Pain in right hip (principal); M25.552 Pain in left hip; M46.1 Sacroiliitis, not elsewhere classified
CPT/HCPCS: 73521

== ENCOUNTER → 2023-08-17 09:45 | Outpatient (CLI) | payer MEDICARE, SELFPAY ==
--- NOTE | ~2023-08-17 | MR_ITS ---
MRI of the lumbar spine Clinical History: Spinal stenosis Technique: Axial T2-weighted images, and sagittal T1-weighted, T2-weighted, and T2 fat-sat images wer e acquired. COMPARISON: 09/22/2019 Findings: Chronic compression fracture of L3 is unchanged from prior exam. Osseous alignment is stabl e from prior exam. No suspicious bone marrow signal abnormality seen. At L1-L2, there is minimal disc bulge and mild facet arthropathy. No central canal stenosis or neural foraminal narrowing. At L2-L3, there is diffuse disc bulge and moderate to advanced facet arthropathy. There is severe spi nal canal stenosis/thecal sac compression, also contributed to by retropulsion of the L3 vertebral abdifatah dy. There is severe bilateral neural foraminal narrowing. L3-L4, disc bulge and moderate facet arthropathy are present. There is minimal central canal stenosis . There is minimal bilateral neural foraminal narrowing. At L4-L5, there is disc bulge and severe facet arthropathy. There is mild central canal stenosis with prominent posterior epidural fat. There is mild left neural foraminal narrowing. L5-S1, there is disc bulge and mild to moderate facet arthropathy. There is moderate bilateral neural foraminal narrowing. No effie central canal stenosis. Paravertebral soft tissues are unremarkable. Impression: Stable, chronic compression fracture deformity of L3. Severe degenerative spondylosis, as detailed above, worst at L2-L3. Reviewed, dictated and finalized at [facility]. ER CUTTER Impression: Stable, chronic compression fracture deformity of L3. Severe degenerative spondylosis, as detailed above, worst at L2-L3.
== END ==
PROVIDERS: PCP Family Medicine; Visit Provider Anesthesiology Pain Medicine
DX: M48.062 Spinal stenosis, lumbar region with neurogenic claudication (principal); M47.896 Other spondylosis, lumbar region
CPT/HCPCS: 72148

== ENCOUNTER 2023-08-25 06:06 | Day surgery (SDC) | payer MEDICARE, SELFPAY ==
[2023-08-21 09:34] VITALS: BMI 32.2
--- NOTE | ~2023-08-25 | XR_ITS ---
EXAMINATION: XR fluoroscopy no charge DATE: 08/25/2023 9:10 RIB BENDER INDICATION: RIGHT L3,L4,L5 MED BRANCH/DORSAL RAMUS BLOCK . TECHNIQUE: 6 fluoroscopic images including 2 cine clips of 7 and 15 images of the lumbar spine were o btained during right L3, L4, L5 medial branch/dorsal ramus block. I was not present during the proced ure. Fluoroscopy exposure time was 21 seconds. Air Kerma 20.33 mGy. COMPARISON: None FINDINGS: Multiple images demonstrate needle access to L3, L4, and L5 followed by instillation of contrast. IMPRESSION: Fluoroscopic documentation of right L3, L4, L5 medial branch/dorsal ramus block. Please refer to the operative note for complete procedural details . Reviewed, dictated and finalized at location K. BENDER IMPRESSION: Fluoroscopic documentation of right L3, L4, L5 medial branch/dorsal ramus block . Please refer to the operative note for complete procedural details .
--- NOTE | 2023-08-25 07:33 | WPDHPUPDATE1 ---
History and Physical Update Update Date/Time: 08/25/23 07:33 History and Physical has been reviewed, including an updated exam of the patient. There are NO changes in the patient's condition. Risks, benefits, and alternatives have been discussed and questions answered. Patient agrees to proceed with procedure.
[2023-08-25 07:54] VITALS: BP 126/72; PULSE 69; RESP 18; TEMP 36.9; O2SAT 95; BMI 33.3
[2023-08-25 09:14] VITALS: BP 166/74; PULSE 57; RESP 15; O2SAT 94
[2023-08-25] MEDS: BUPivacaine HCL 0.5% 10 ML AMP INFILTRATE (09:20)
[2023-08-25 09:22] VITALS: BP 138/65; PULSE 61; RESP 15; O2SAT 96
--- NOTE | 2023-08-25 09:26 | W.PM.PROC2 ---
Procedure Note - Detailed Date of Procedure 08/25/23 Pre-op Diagnosis Lumbosacral spondylosis, chronic low back pain Post-op Diagnosis Same Procedure Performed right L3, L4, L5 medial branch / dorsal ramus diagnostic/prognostic nerve block (#1) addressing the right L4-5, L5-S1 facet joint under fluoroscopic guidance with contrast control. Surgeon Remi Castillo MD Anesthesia Local Description of Procedure INFORMED CONSENT: Risks, benefits and alternatives to the procedure were discussed in detail with the patient who expressed explicit understanding and consent to proceed. Patient was informed verbally and in written form regarding the risks associated with the procedure including the low risk of serious infection, bleeding/bruising, allergic reaction, nerve or organ injury, paralysis, procedural site pain or discomfort, worsening pain and/or mobility, failure to treat and/or disfigurement. The patient expressed explicit understanding and consent to proceed. All materials required for the procedure were available prior to procedure start. Site and side were marked prior to procedure and confirmed in the presence of the patient. PROCEDURE IN DETAIL: The patient was brought to the procedural suite and placed in the prone position. Patient was made comfortable with use of pillows under the head/chest, hips and ankles. Skin overlying the injection site on the affected side(s) was prepared broadly with ChloraPrep applicator and draped in a sterile manner. Aseptic technique was used throughout. The endplates of the vertebral bodies at the site(s) of interest were aligned in the AP view. Ipsilateral oblique angulation was utilized to optimize visualization of the intersection between the superior articulating process and transverse process at each target site. Local anesthesia was established by infiltration with approximately 5 mL of 1% lidocaine via a 1-1/2 inch 27-gauge needle. A 25-gauge 3.5 inch Quincke spinal needle was advanced until the needle tip contacted periosteum at the target site, Right L3. Lateral view was utilized to confirm the appropriate placement of the needle tip just anterior to the facet line and superior to the pedicle. In the Lateral view, 0.25 mL of Omnipaque 300 contrast medium was injected after negative aspiration for CSF, blood or other bodily fluid, showing appropriate extra-articular spread of contrast without evidence of intravascular, foraminal or intrathecal placement. A 0.5 mL solution of 0.5% PF bupivacaine was injected after negative repeat aspiration. Appropriate spread of the injectate was confirmed with washout of previously injected contrast. No parasthesias were elicited. Needle was removed completely intact without difficulty. The same exact procedure was repeated for all remaining levels on the ipsilateral side, right L4, L5 medial branches/dorsal ramus, modified as necessary to accommodate for the new target location with identical findings and results and no evidence of complication. Images were saved and documented in the patient chart. Patient's skin was cleaned and sterile bandage applied. The patient tolerated the procedure well. The patient was transported to the recovery area in stable condition where they were observed for an appropriate amount of time prior to discharge, without evidence of complication. Patient was instructed on the appropriate completion of a pain diary over the next 12-24 hours. The patient was instructed to avoid excessive activity for the next 48 hours, including climbing and frequent use of stairs. Showers only for 48 hours. They were instructed not to drive or operate heavy machinery for 24 hours. They are to monitor for severe headaches, fevers, chills, night sweats, erythema/swelling at the site or any other signs of infection, bleeding/bruising, bowel or bladder changes as well as new pain, weakness or numbness in the upper or lower extremity. Should they notice these changes, they are
[2023-08-25] MEDS: LIDOCAINE HCL 1% PF INJ 5 ML VIAL 10 ML AFFCTD EYE (09:29)
[2023-08-25 09:31] VITALS: BP 135/69; PULSE 58; RESP 16; O2SAT 96
--- NOTE | 2023-08-25 10:17 | SUR.PHASEII ---
0931; pt awake and alert. SAGRARIO, denies numbness and tingling
== END 2023-08-25 09:43 | disposition home or self-care (01) ==
PROVIDERS: PCP Family Medicine; Visit Provider Anesthesiology Pain Medicine
PROC: (CPT 64493; principal; 2023-08-25 08:30)
DX: M47.817 Spondylosis without myelopathy or radiculopathy, lumbosacral region (principal); M54.59 Other low back pain
CPT/HCPCS: 64493; 64494; 64495; 99199

== ENCOUNTER 2023-10-13 08:25 | Day surgery (SDC) | payer MEDICARE, SELFPAY ==
[2023-10-08 12:33] VITALS: BMI 33.2
--- NOTE | ~2023-10-13 | XR_ITS ---
EXAMINATION: XR fluoroscopy no charge DATE: 10/13/2023 11:05 VOIP ENGINEER INDICATION: RIGHT L3,L4,L5 BK . TECHNIQUE: 6 fluoroscopic images, including cine clips of 6, 4, 7, and 4 images of the lumbar spine w ere obtained during right L3, L4, and L5 blocks performed by the surgeon. I was not present in the op erating room. Fluoroscopy exposure time was 19 seconds. Air Kerma 7.33 mGy. COMPARISON: 08/25/2023 FINDINGS: Fluoroscopic images document needle access to the right L3, L4, and L5 vertebral bodies laterally, fo llowed by contrast injection. Incidental note of an IVC filter. IMPRESSION: Fluoroscopic documentation of right L3, L4, and L5 blocks. Please refer to the operative note for com plete procedural details . Reviewed, dictated and finalized at location K. ENGINEER IMPRESSION: Fluoroscopic documentation of right L3, L4, and L5 blocks. Please refer to the operative note for complete procedural details .
[2023-10-13 10:04] VITALS: BP 124/67; PULSE 70; RESP 18; TEMP 36.6; O2SAT 95
--- NOTE | 2023-10-13 10:27 | PM.HPGS ---
History of Present Illness History of Present Illness Consent: Risks, benefits, and alternatives have been discussed and questions answered. Patient agrees to proceed with procedure. Chief complaint: Lumbosacral spondylosis, Chronic low back pain Narrative: Matt Bar is a 78 year old male with chronic, disabling and recalcitrant low back pain secondary to lumbosacral spondylosis and lumbar facet syndrome despite maximal efforts at conservative therapy to include physical therapy, oral and topical analgesics, opioid and nonopioid analgesics, injections, rest, time, behavior/activity modification over the past 6-12 months. As result, the patient is markedly limited in his activity tolerance, functional capacity, ADLs and self-care activities. Patient has had significant and diagnostic/ prognostic response to a previous set of medial branch blocks and is scheduled for confirmatory blocks at this time. Review of Systems Review of Systems: All systems reviewed & are unremarkable except as noted in HPI and below PMFSH Past Medical History Medical History Abrasion Afib Occurred following his aneurysm repair surgery without recurrence Aortic dissection, thoracic Arthritis Benign prostatic hyperplasia with urinary frequency Coronary artery disease Nonocclusive coronary disease noted on catheterization June 2012 with 50% left main disease and 40% ostial LAD disease noted on the catheterization at which time patient was diagnosed with the ascending aortic aneurysm dissection and was transferred to [place] Degenerative joint disease of knee Depression Dissecting ascending aortic aneurysm June 2012 Diverticulosis Dysthymia Essential hypertension Gout Left great toe Hyperlipidemia Hyperlipidemia LDL goal <100 Insomnia Lumbar burst fracture Obstructive sleep apnea Orthostatic hypotension Painful total knee replacement, right PLMD (periodic limb movement disorder) Pulmonary embolism This is list under the history of her patient had denied this in the past Respiratory failure Right knee pain Sleep apnea Polysomnogram 2012 nasal CPAP with a pressure of 10 cm of water Stasis dermatitis of both legs Uncomplicated alcohol dependence Surgical History Surgical History History of right knee joint replacement History of thoracotomy To repair spontaneous ascending aortic aneurysm dissection June 2012 History of total left knee replacement With patellar resurfacing Hx of CABG Due to involvement of the origin of the LAD with his ascending aneurysm. Not due to Hx of cardiac cath Hx of tonsillectomy Has a child Perirectal abscess x2 Presence of IVC filter S/P total knee arthroplasty Family History Family History (Reviewed 09/07/23 @ 08:28 by Seema Dallas [facility]) Other Diabetes mellitus Heart disease Social History Social History (Reviewed 09/07/23 @ 08:28 by Seema Dallas [facility]) Social History: The patient has been for approximately 52 years. He lives in [place]. 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 He drinks between 4-5 beers a day. He is a former smoker. He smoked a pack of cigarettes per day but quit approximately 30 years ago. He did start chewing tobacco in snuff. Uses about a can of snuff per week. He has 2 daughters and is and lives with his . His brother Gregory is his durable power senior attorney for healthcare. Primary care physician is Dr. Remi Pop. Code status: Full code Smoking packs per day: 1.5 Smoking cigarettes per day: 30.0 Years smoked: 30 Smoking pack-years: 45.00 Smoking status: Former smoker Tobacco type: cigarettes and cigars Smokeless tobacco user: chewing tobacco Second hand tobacco smoke exposure: Yes Smoking end date: 10/05/02 Alcohol intake: current Drinks per week: 50 Alcohol use details: PT STATES HE DRINKS
--- NOTE | 2023-10-13 10:33 | WPDHPUPDATE1 ---
History and Physical Update Update Date/Time: 10/13/23 10:33 History and Physical has been reviewed, including an updated exam of the patient. There are NO changes in the patient's condition. Risks, benefits, and alternatives have been discussed and questions answered. Patient agrees to proceed with procedure.
[2023-10-13 11:10] VITALS: BP 157/67; PULSE 61; RESP 18; O2SAT 95
[2023-10-13] MEDS: LIDOCAINE HCL 2% PF INJ 5 ML VIAL 3 ML INFILTRATE (11:16)
[2023-10-13] MEDS: LIDOCAINE HCL 1% PF INJ 5 ML VIAL INFILTRATE (11:16)
--- NOTE | 2023-10-13 11:23 | W.PM.PROC2 ---
Procedure Note - Detailed Date of Procedure 10/13/23 Pre-op Diagnosis Lumbosacral spondylosis, Chronic low back pain Post-op Diagnosis Same Procedure Performed right L3, L4, L5 medial branch/ dorsal ramus nerve block (#2) addressing the right L4-5, L5-S1 facet joints under fluoroscopic guidance contrast control Surgeon Remi Castillo MD Anesthesia Local Description of Procedure INFORMED CONSENT: Risks, benefits and alternatives to the procedure were discussed in detail with the patient who expressed explicit understanding and consent to proceed. Patient was informed verbally and in written form regarding the risks associated with the procedure including the low risk of serious infection, bleeding/bruising, allergic reaction, nerve or organ injury, paralysis, procedural site pain or discomfort, worsening pain and/or mobility, failure to treat and/or disfigurement. The patient expressed explicit understanding and consent to proceed. All materials required for the procedure were available prior to procedure start. Site and side were marked prior to procedure and confirmed in the presence of the patient. PROCEDURE IN DETAIL: The patient was brought to the procedural suite and placed in the prone position. Patient was made comfortable with use of pillows under the head/chest, hips and ankles. Skin overlying the injection site on the affected side(s) was prepared broadly with ChloraPrep applicator and draped in a sterile manner. Aseptic technique was used throughout. The endplates of the vertebral bodies at the site(s) of interest were aligned in the AP view. Ipsilateral oblique angulation was utilized to optimize visualization of the intersection between the superior articulating process and transverse process at each target site. Local anesthesia was established by infiltration with approximately 5 mL of 1% lidocaine via a 1-1/2 inch 27-gauge needle. A 25-gauge 3.5 inch Quincke spinal needle was advanced until the needle tip contacted periosteum at the target site, right L3. Lateral view was utilized to confirm the appropriate placement of the needle tip just anterior to the facet line and superior to the pedicle. In the Lateral view, 0.25 mL of Omnipaque 300 contrast medium was injected after negative aspiration for CSF, blood or other bodily fluid, showing appropriate extra-articular spread of contrast without evidence of intravascular, foraminal or intrathecal placement. A 0.5 mL solution of 2.0% preservative-free lidocaine was injected after negative repeat aspiration. Appropriate spread of the injectate was confirmed with washout of previously injected contrast. No parasthesias were elicited. Needle was removed completely intact without difficulty. The same exact procedure was repeated for all remaining levels on the ipsilateral side, right L4, L5 medial branches/dorsal ramus, modified as necessary to accommodate for the new target location with identical findings and results and no evidence of complication. Images were saved and documented in the patient chart. Patient's skin was cleaned and sterile bandage applied. The patient tolerated the procedure well. The patient was transported to the recovery area in stable condition where they were observed for an appropriate amount of time prior to discharge, without evidence of complication. Patient was instructed on the appropriate completion of a pain diary over the next 12-24 hours. The patient was instructed to avoid excessive activity for the next 48 hours, including climbing and frequent use of stairs. Showers only for 48 hours. They were instructed not to drive or operate heavy machinery for 24 hours. They are to monitor for severe headaches, fevers, chills, night sweats, erythema/swelling at the site or any other signs of infection, bleeding/bruising, bowel or bladder changes as well as new pain, weakness or numbness in the upper or lower extremity. Should they notice these changes, they are instructed to
[2023-10-13 11:25] VITALS: BP 143/67; BP 151/76; PULSE 55; PULSE 63; RESP 18; RESP 20; O2SAT 93; O2SAT 96
== END 2023-10-13 11:36 | disposition home or self-care (01) ==
PROVIDERS: PCP Family Medicine; Visit Provider Anesthesiology Pain Medicine
PROC: (CPT 64493; principal; 2023-10-13 10:30)
DX: M47.817 Spondylosis without myelopathy or radiculopathy, lumbosacral region (principal); M54.59 Other low back pain
CPT/HCPCS: 64493; 64494; 64495; 99199

== ENCOUNTER 2023-11-03 10:06 | Outpatient (CLI) | payer MEDICARE, SELFPAY ==
--- NOTE | ~2023-11-03 | XR_ITS ---
Clinical Indication: Preoperative evaluation PA and lateral views of the chest: Comparison: 09/21/2019 Findings: The lungs are clear, without evidence of focal consolidation or pleural effusion. Cardiome diastinal silhouette is within normal limits. Bones and soft tissues are unremarkable. Impression: Clear lungs. Reviewed, dictated and finalized at location . CLERK Impression: Clear lungs.
--- NOTE | 2023-11-03 10:52 | ECG_ITS ---
Measurements Intervals [place] Rate: 66 P: 58 RI: 207 QRS: 59 QRSD: 137 T: 46 QT: 440 QTc: 463 Interpretive Statements SINUS RHYTHM BORDERLINE AV CONDUCTION DELAY RIGHT BUNDLE BRANCH BLOCK ABNORMAL ECG COMPARED TO ECG 06/03/2020 17:14:17 NO SIGNIFICANT CHANGES Electronically Signed On 11-03-2023 11:46:02 FUEL DISTRIBUTION SYSTEM OPERATOR by Darshan Combs D.O.
[2023-11-03 10:58] LABS: Hematocrit 41.3 % (42.0-52.0); Hemoglobin 13.9 g/dL (14.0-18.0); Mean Corpuscular HGB Conc 33.7 g/dl (32-36); Mean Corpuscular Hemoglobin 32.8 pg (26-34); Mean Corpuscular Volume 97.4 fl (80-100); Platelet Count Result 239 k/mm3 (150-375); Red Blood Count 4.24 M/mm3 (4.6-6.20); Red Cell Distribution Width 12.8 % (11.5-14.5); White Blood Count 9.1 K/mm3 (4.5-10.0)
[2023-11-03 11:09] LABS: Alanine Aminotransferase 28 U/L (6-50); Albumin Level 4.1 g/dL (3.5-5.1); Alkaline Phosphatase 73 U/L (38-126); Anion Gap 8 mmol/L (8-16); Aspartate Amino Transferase 28 U/L (17-59); Bilirubin,Total 0.8 mg/dL (0.2-1.3); Blood Urea Nitrogen 21 mg/dL (9-20); Calcium 10.1 mg/dL (8.4-10.2); Carbon Dioxide 28 mmol/L (22-30); Chloride 100 mmol/L (98-107); Estimated Glomerular Filt Rate 49; Glucose 120 mg/dL (65-110); Sodium 136 mmol/L (137-145)
== END 2023-11-03 10:07 | disposition home or self-care (01) ==
PROVIDERS: PCP Family Medicine; Visit Provider Anesthesiology Pain Medicine
DX: M48.062 Spinal stenosis, lumbar region with neurogenic claudication (principal); G47.33 Obstructive sleep apnea (adult) (pediatric); I10 Essential (primary) hypertension; I45.9 Conduction disorder, unspecified; I45.10 Unspecified right bundle-branch block
CPT/HCPCS: 36415; 71046; 80053; 85027; 93005

== ENCOUNTER 2023-12-01 05:00 | Day surgery (SDC) | payer MEDICARE, SELFPAY ==
[2023-11-23 10:07] VITALS: BMI 32.8
--- NOTE | 2023-11-23 10:37 | PC.NURSE ---
Report to the Outpatient Waiting Room, entrance under the green pavilion located off [facility], at time __7:00AM on date __12/01/23 . Planned Procedure Time: __9:00AM . Time changes happen often and if your time is changed the preop area will call you the afternoon before. - You and your visitor will be asked to self-screen and do not enter if you have any COVID symptoms. - A mask is optional within the hospital at this time. Patients may have clear liquids (water, carbonated beverages, clear teas, apple juice) until 3 hours prior to surgery with a maximum of 20 ounces. - No food from midnight until time of surgery. Take the following medications with a SIP of water the morning of surgery: ___AMLODIPINE, CITALOPRAM DO NOT STOP ANY OF YOUR OTHER PRESCRIPTION MEDICATIONS PRIOR TO SURGERY ?EXCEPT THE FOLLOWING Medications to discontinue per physician NONE Date to take last dose Please no make-up, nail bermudian, hairspray, perfume, deodorant, or body powder the day of surgery. No jewelry (including any body piercings) or valuables the day of surgery, leave them at home. Please take a shower or bath the night before, or the morning of, surgery with an antibacterial soap. Wear comfortable, loose fitting clothing. - Jewelry must be removed prior to entering the operating room. Rings and piercings that are not removed may be cut off. - The hospital will not accept responsibility for valuables. - Please leave all valuables, including medications, at home the day of surgery. If you are going home after surgery, a licensed warehouse associate driver must drive you home. - NO public transportation without another adult if you receive anesthesia. - We recommend that an adult stay with you for 24 hours following discharge. - We also recommend that you do not drive, make important decision, drink alcoholic beverages, or take any drugs that were not prescribed by your health care provider for at least 24 hours after your discharge time. Follow any additional instructions given to you from your surgeon. TAKE BATH OR SHOWER NIGHT BEFORE AND MORNING OF SURGERY PER DR GODOY. If you or anyone in your household have experienced Covid symptoms in the past week, please notify your surgeon or the nurse liaison at the phone number below for possible testing. Telephone instructions given to ____PATIENT and asked if any additional questions and then verbalized understanding. Patient advised to call surgeon office or pre surgery nurse liaison [phone] if any additional questions.
[2023-12-01] VITALS (9 sets, daily range): BP systolic 116–145; BP diastolic 47–85; PULSE 59–72; RESP 14–20; TEMP 36.1–36.4; O2SAT 93–97
--- NOTE | ~2023-12-01 | XR_ITS ---
EXAMINATION: XR fluoroscopy no charge DATE: 12/01/2023 10:13 INDICATION: Lumbar spinal stenosis with neurogenic claudication. TECHNIQUE: 14 intraoperative fluoroscopic views of the lumbar spine were obtained. I was not present. Fluoroscopy exposure time was 149 seconds. COMPARISON: Lumbar spine MRI 08/17/2023. FINDINGS: There is severe lumbar spondylosis. Instruments overlie the posterior elements. There is a filter in the inferior vena cava. IMPRESSION: 1. Severe lumbar spondylosis. Reviewed, dictated and finalized at location A. COLLECTOR
--- NOTE | 2023-12-01 05:52 | PM.HPGS ---
History of Present Illness History of Present Illness Consent: Risks, benefits, and alternatives have been discussed and questions answered. Patient agrees to proceed with procedure. Chief complaint: lumbar spinal stenosis w/ neurogenic claudication Narrative: Matt Bar is a 78 year old male with chronic, recalcitrant and disabling bilateral right greater than left low back and lower extremity pain and dysfunction secondary to lumbar spinal stenosis with neurogenic claudication with moderate to severe central canal stenosis at L3-4 and L4-5 partially secondary to ligamentum flavum hypertrophy with failure to respond to aggressive conservative measures including PT, oral and topical analgesics, opioid and nonopioid analgesics, rest, time and activity/behavioral modification over the past 1-2 years who presents for bilateral minimally invasive lumbar decompression at L3-4 and L4-5 under fluoroscopic guidance with possible epidurogram. Review of Systems Review of Systems: Patient denies any new infectious, allergic, cardiopulmonary, neurologic or constitutional symptoms or changes in activity tolerance or exercise capacity including new or progressive SOB/HELTON, peripheral edema, productive cough, dysuria, nausea/vomiting, diarrhea, weight change, fevers/chills/night sweats, new or progressive neurologic deficit, cognitive or mood changes since last seen, except as documented in the HPI. All systems reviewed & are unremarkable except as noted in HPI and below PMFSH Past Medical History Medical History Abrasion Afib Occurred following his aneurysm repair surgery without recurrence Aortic dissection, thoracic Arthritis Benign prostatic hyperplasia with urinary frequency Coronary artery disease Nonocclusive coronary disease noted on catheterization June 2012 with 50% left main disease and 40% ostial LAD disease noted on the catheterization at which time patient was diagnosed with the ascending aortic aneurysm dissection and was transferred to [place] Degenerative joint disease of knee Depression Dissecting ascending aortic aneurysm June 2012 Diverticulosis Dysthymia Essential hypertension Gout Left great toe Hyperlipidemia Hyperlipidemia LDL goal <100 Insomnia Lumbar burst fracture Obstructive sleep apnea Orthostatic hypotension Painful total knee replacement, right PLMD (periodic limb movement disorder) Pulmonary embolism This is list under the history of her patient had denied this in the past Respiratory failure Right knee pain Sleep apnea Polysomnogram 2012 nasal CPAP with a pressure of 10 cm of water Stasis dermatitis of both legs Uncomplicated alcohol dependence Surgical History Surgical History History of right knee joint replacement History of thoracotomy To repair spontaneous ascending aortic aneurysm dissection June 2012 History of total left knee replacement With patellar resurfacing Hx of CABG Due to involvement of the origin of the LAD with his ascending aneurysm. Not due to Hx of cardiac cath Hx of tonsillectomy Has a child Perirectal abscess x2 Presence of IVC filter S/P total knee arthroplasty Family History Family History Other Diabetes mellitus Heart disease Social History Social History Social History: The patient has been for approximately 52 years. He lives in [place]. 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 He drinks between 4-5 beers a day. He is a former smoker. He smoked a pack of cigarettes per day but quit approximately 30 years ago. He did start chewing tobacco in snuff. Uses about a can of snuff per week. He has 2 daughters and is and lives with his . His brother Gregory is his durable power molecular biology director for healthcare. Primary c
--- NOTE | 2023-12-01 06:05 | WPDHPUPDATE1 ---
History and Physical Update Update Date/Time: 12/01/23 06:05 History and Physical has been reviewed, including an updated exam of the patient. There are NO changes in the patient's condition. Risks, benefits, and alternatives have been discussed and questions answered. Patient agrees to proceed with procedure.
--- NOTE | 2023-12-01 06:08 | W.PM.PROC2 ---
Procedure Note - Detailed Date of Procedure 12/01/23 Pre-op Diagnosis lumbar spinal stenosis w/ neurogenic claudication Post-op Diagnosis Same Procedure Performed Bilateral L3-4, L4-5 minimally invasive lumbar decompression under fluoroscopic guidance. Surgeon Remi Castillo MD Anesthesia MAC and Local Description of Procedure INFORMED CONSENT: Risks, benefits, and alternatives to the procedure were discussed in detail with the patient who expressed explicit understanding and consent to proceed. Risks discussed with the patient included but were not limited to risk of serious local or systemic infection, bleeding/bruising, epidural hematoma, dural puncture or tear resulting in CSF leak and acute or chronic post-dural puncture headache, scarring/deformity, immediate or delayed allergic reaction, decreased mobility, failure to treat pain, inadvertent neurologic injury resulting in increased pain, weakness/paralysis or numbness, inadvertent organ injury, need for additional surgery, allergic reaction, heart attack, stroke, seizure, coma, . Anesthetic risks were also briefly discussed by myself and the continuity clerk. The patient expressed understanding and consent to proceed, agreeing that potential benefits outweigh risk of harm. All materials required for the procedure were immediately available prior to procedure start. Site and side were confirmed with the patient, compared carefully to the patient chart and consent, and marked prior to transport to the operating room. Appropriate time out procedure was performed per protocol prior to procedure start. PROCEDURE IN DETAIL: The patient was brought to the operative suite and placed in the Supine position. Appropriate ASA standard monitors were attached. Anesthesia was initiated without difficulty or event. Eyes were protected. Pressure points were padded with joints in neutral position. When appropriate, breasts and genitals were evaluated and protected. Eyes were checked and were free from undue pressure. Skin overlying the procedure site was marked with sterile marker. Surgical area was prepared in a typical sterile fashion with ChloraPrep and allowed to dry for at least 3 minutes prior to sterilely draping the surgical site. The lumbar spine was identified in the AP fluoroscopic view with slight cephalad tilt perfectly aligning the endplates at the targeted levels with spinous processes bisecting the transpedicular plane. After identifying the intended incision site approximately 1.5 levels inferior to the level of interest, the area was anesthetized by infiltration with no more than 10ml of a 1:1 admixture of 0.5% PF bupivacaine with epinephrine and 2% PF lidocaine with epinepherine via a 27-gauge needle after negative aspiration. A 22-gauge spinal needle was used to provide additional and adequate local anesthesia to the level of the interspinous ligament, ligamentum flavum and the periosteum of the lamina at the intended treatment levels. In the AP view, a #11 scalpel blade was used to create a single stab incision at the intended incision site on the targeted side. The Vertos MILD kit was opened and the included cannula and trocar assembly was advanced through the incision to contact the midportion of the right lamina just adjacent to the spinous process at L5. Once seated, the lateral view was used to gauge depth demonstrating the most anterior tip of the trocar posterior to the epidural space at all times. The drywall taper helper-provided cannula stabilizer was placed over the trocar flush to the patient's lumbar flank. Cannula obturator with handle was removed. Included depth guide was then attached to the insertion port on the cannula and set to an intial depth of 15 mm. The bone rongeur was advanced to the depth of the lumbar lamina at the targeted level. Depth gauge was then adjusted allowing rongeur tip to advance in the contralateral oblique view to the anterior border of the superior and i
[2023-12-01] MEDS: LACTATED RINGERS 1,000 ML 30 ML IV CONT ×2 (06:40→10:27)
--- NOTE | 2023-12-01 07:50 | WPDANESEPPF ---
Anes - Initial Pre Proc Eval Procedure: Operation Date: 12/01/23 08:15 Proposed Procedures p Bilateral L3-4, L4-5 Minimally Invasive Lumbar Decompression under Fluoroscopic Guidance, Possible Epidurogram - Remi Castillo MD Date/Time: 12/01/23 07:50 Surgeon: Remi Castillo MD Pre Op Diagnosis: lumbar spinal stenosis w/ neurogenic claudication Patient Data Age: 78 Gender: M Height: 1.8 m Weight: 107.5 kg Last Vital Signs Temp 36.4 C L 12/01/23 06:23 Pulse 65 12/01/23 06:23 Resp 18 12/01/23 06:23 BP 132/55 L 12/01/23 06:23 Pulse Ox 94 12/01/23 06:23 O2 Del Method Room Air 12/01/23 06:23 Allergies Allergy/AdvReac Type Severity Reaction Status Date / Time shellfish derived Allergy Severe Swelling Verified 12/01/23 06:58 levofloxacin Allergy Mild Rash Verified 12/01/23 06:58 Home Medications Medication Instructions Recorded Confirmed Type allopurinol 300 mg tablet 150 mg PO DAILY #45 tabs 07/24/23 12/01/23 Rx finasteride 5 mg tablet 5 mg PO DAILY #90 tabs 08/06/23 12/01/23 Rx simvastatin 20 mg tablet 20 mg PO HS #90 tabs 08/06/23 12/01/23 Rx lisinopril 20 mg tablet 20 mg PO HS #90 tabs 08/18/23 12/01/23 Rx trazodone 100 mg tablet 100 mg PO QHS #90 tabs 10/23/23 12/01/23 Rx clotrimazole 1 % topical cream 1 applic topical Q12H #45 grams 11/13/23 12/01/23 Rx acetaminophen 650 mg 1,300 mg PO Q12H PRN Pain 11/23/23 12/01/23 History tablet,extended release amlodipine 5 mg tablet 5 mg PO QAM 11/23/23 12/01/23 History citalopram 40 mg tablet 40 mg PO QAM 11/23/23 12/01/23 History hydrochlorothiazide 25 mg tablet 25 mg PO QAM 11/23/23 12/01/23 History tamsulosin 0.4 mg capsule 0.4 mg PO HS 11/23/23 12/01/23 History Patient hx anesthesia problems: none Family hx anesthesia problems: none Results Review: All pre-operative results and documents have been reviewed as part of the pre-operative evaluation. [facility] Past Medical History Medical History Abrasion Afib Occurred following his aneurysm repair surgery without recurrence Aortic dissection, thoracic Arthritis Benign prostatic hyperplasia with urinary frequency Coronary artery disease Nonocclusive coronary disease noted on catheterization June 2012 with 50% left main disease and 40% ostial LAD disease noted on the catheterization at which time patient was diagnosed with the ascending aortic aneurysm dissection and was transferred to [place] Degenerative joint disease of knee Depression Dissecting ascending aortic aneurysm June 2012 Diverticulosis Dysthymia Essential hypertension Gout Left great toe Hyperlipidemia Hyperlipidemia LDL goal <100 Insomnia Lumbar burst fracture Obstructive sleep apnea Orthostatic hypotension Painful total knee replacement, right PLMD (periodic limb movement disorder) Pulmonary embolism This is list under the history of her patient had denied this in the past Respiratory failure Right knee pain Sleep apnea Polysomnogram 2012 nasal CPAP with a pressure of 10 cm of water Stasis dermatitis of both legs Uncomplicated alcohol dependence Surgical History Surgical History History of right knee joint replacement History of thoracotomy To repair spontaneous ascending aortic aneurysm dissection June 2012 History of total left knee replacement With patellar resurfacing Hx of CABG Due to involvement of the origin of the LAD with his ascending aneurysm. Not due to Hx of cardiac cath Hx of tonsillectomy Has a child Perirectal abscess x2 Presence of IVC filter S/P total knee arthroplasty Family History Family History Other Diabetes mellitus Heart disease Social History Social History Social History: The patient has been for approximately
[2023-12-01] MEDS: ceFAZolin 2 GM/D5W 50 ML 2 GM/50 ML BAG IVPB (09:14)
[2023-12-01] MEDS: fentaNYL CITRATE INJ (*CRX) 100 MCG/2 ML VIAL 25 MCG IV PUSH ×4 (10:27→10:41)
== END 2023-12-01 12:07 | disposition home or self-care (01) ==
PROVIDERS: PCP Family Medicine; Visit Provider Anesthesiology Pain Medicine
PROC: (CPT 0275T; principal; 2023-12-01 08:15)
DX: M48.062 Spinal stenosis, lumbar region with neurogenic claudication (principal); Z00.6 Encounter for examination for normal comparison and control in clinical research program; N40.1 Benign prostatic hyperplasia with lower urinary tract symptoms; R35.0 Frequency of micturition; I25.10 Atherosclerotic heart disease of native coronary artery without angina pectoris; I10 Essential (primary) hypertension; M10.9 Gout, unspecified; E78.5 Hyperlipidemia, unspecified; G47.33 Obstructive sleep apnea (adult) (pediatric); F10.20 Alcohol dependence, uncomplicated; F17.290 Nicotine dependence, other tobacco product, uncomplicated; F12.90 Cannabis use, unspecified, uncomplicated; E66.9 Obesity, unspecified; Z68.33 Body mass index [BMI] 33.0-33.9, adult; Z95.1 Presence of aortocoronary bypass graft
CPT/HCPCS: 0275T; 99199; C1889; J0330; J0690; J2704; J3010; J7120; Q9965

== ENCOUNTER 2024-01-16 17:05 | Emergency (ER) | payer MEDICARE, SELFPAY ==
--- NOTE | ~2024-01-16 | XR_ITS ---
EXAMINATION: XR chest 1V portable DATE: 01/16/2024 17:30 INDICATION: Cardiac arrest. TECHNIQUE: A single frontal view of the chest was obtained. COMPARISON: Chest 2 views 11/03/2023 FINDINGS: Left lateral costophrenic angle is excluded. There are mild airspace opacities in right low er lung zone. No pleural effusion or pneumothorax. The heart size is normal. Median sternotomy wires are noted. The endotracheal tube tip is 3.7 cm above the bonita. There are fracture deformities of ri ght fifth-eighth ribs. IMPRESSION: 1. Mild airspace opacities in right lower lung zone, consistent with atelectasis versus pneumonia. 2. Fracture deformities of right fifth-eighth ribs, likely acute. Reviewed, dictated and finalized at location E. IMPRESSION: 1. Mild airspace opacities in right lower lung zone, consistent with atelectasi s versus pneumonia. 2. Fracture deformities of right fifth-eighth ribs, likely acute.
--- NOTE | 2024-01-16 17:10 | PC.NURSE ---
1723 epi IV push administered VORB ERP Dr. Mejias 1728 blood started in bilateral IVs - see mass transfusion sheet 1729 norepinephrine started 5mcg/min in IO via pump
[2024-01-16 17:21] VITALS: BP 171/143; PULSE 60; RESP 19; O2SAT 92
--- NOTE | 2024-01-16 17:34 | PC.NURSE ---
pt intubated by dr balderrama with 7.5 et tube measuring 25 at the lip color change noted, chest rise and fall witnessed, bilateral breath sounds heard.
[2024-01-16 17:36] LABS: Hematocrit 37.8 % (42.0-52.0); Hemoglobin 11.9 g/dL (14.0-18.0); Mean Corpuscular HGB Conc 31.5 g/dl (32-36); Mean Corpuscular Volume 104.7 fl (80-100); Mean Platelet Volume 8.9 fl (7.4-10.4); Platelet Count Result 102 k/mm3 (150-375); Red Blood Count 3.61 M/mm3 (4.6-6.20); Red Cell Distribution Width 13.9 % (11.5-14.5); White Blood Count 9.7 K/mm3 (4.5-10.0)
[2024-01-16 17:47] LABS: Alanine Aminotransferase 215 U/L (6-50); Albumin Level 3.5 g/dL (3.5-5.1); Alkaline Phosphatase 59 U/L (38-126); Anion Gap 17 mmol/L (4-12); Aspartate Amino Transferase 332 U/L (17-59); Bilirubin,Total 0.5 mg/dL (0.2-1.3); Blood Urea Nitrogen 15 mg/dL (9-20); Calcium 8.1 mg/dL (8.4-10.2); Carbon Dioxide 16 mmol/L (22-30); Chloride 96 mmol/L (98-107); Creatine Kinase 309 U/L (55-170); Estimated Glomerular Filt Rate 49; Glucose 300 mg/dL (65-110); Potassium 3.9 mmol/L (3.4-5.0); Sodium 129 mmol/L (137-145)
[2024-01-16 17:48] LABS: INR 1.7; Prothrombin Time 20.8 Seconds (11.1-14.7)
[2024-01-16 17:50] LABS: Lactic Acid Reflex 11.7 mmol/L (0.7-2.0); Partial Thromboplastin Time 89.4 Seconds (22.3-36.8)
--- NOTE | 2024-01-16 17:58 | PC.NURSE ---
1723 epi 1728 blood started in bilateral IVs - see mass transfusion sheet 1729 norepinephrine started 5mcg/min in IO via pump
[2024-01-16 18:00] LABS: Troponin I 0.178 ng/mL (0.000-0.034)
--- NOTE | 2024-01-16 18:01 | PC.NURSE ---
Transfer to [facility] was canceled per MD Mejias at 1740. [facility] transfer center notified at 1075.
[2024-01-16 18:07] LABS: Band Neutrophils Percent 7 % (0-6); Basophils Absolute Manual 0.09 K/mm3 (0.0-0.1); Basophils Percent Manual 1 % (0-1); Lymphocytes Absolute Manual 3.39 K/mm3 (1.1-4.5); Monocytes Absolute Manual 0.77 K/mm3 (0.1-0.90); Monocytes Percent Manual 8 % (3-9); Neutrophils Absolute Manual 5.43 K/mm3 (1.3-6.7); Neutrophils Percent Manual 49 % (46-73); Nucleated Red Blood Cells 1 %; Platelet Estimate Decreased (Adequate); Total Cells Counted 100
[2024-01-16 18:08] LABS: Hypochromasia 1+; Schistocytes None Seen
--- NOTE | 2024-01-16 18:18 | PC.NURSE ---
nayeli at [facility] transplant [facility]. File number [id number]
--- NOTE | 2024-01-16 18:22 | PC.NURSE ---
dr balderrama spoke to patients PMD dr monzon who stated he is willing to sign the certificate
--- NOTE | 2024-01-16 19:11 | ED.GENADULT ---
HPI - General Adult General Chief complaint: Cardiac Arrest/CPR Stated complaint: CARDIAC ARREST Time Seen by Provider: 01/16/24 17:27 History of Present Illness HPI narrative: 78-year-old male presents via EMS with CPR in progress. Medics state that patient was found underneath a 0 paternal aunt more with his head and neck cranked and an unnatural position. When he removes the lawnmower patient was found to be pulseless and unresponsive. ACLS was initiated patient did regain pulses for short period of time before they were lost again just prior to arrival. Patient placed on monitor and ACLS was continued. Related Data Home Medications Medication Instructions Recorded Confirmed acetaminophen 650 mg 1,300 mg PO Q12H PRN Pain 11/23/23 12/01/23 tablet,extended release amlodipine 5 mg tablet 5 mg PO QAM 11/23/23 12/01/23 citalopram 40 mg tablet 40 mg PO QAM 11/23/23 12/01/23 tamsulosin 0.4 mg capsule 0.4 mg PO HS 11/23/23 12/01/23 Allergies Allergy/AdvReac Type Severity Reaction Status Date / Time shellfish derived Allergy Severe Swelling Verified 12/01/23 06:58 levofloxacin Allergy Mild Rash Verified 12/01/23 06:58 Review of Systems Review of Systems: Unable to obtain [facility] Past Medical History Medical History Abrasion Afib Occurred following his aneurysm repair surgery without recurrence Aortic dissection, thoracic Arthritis Benign prostatic hyperplasia with urinary frequency Coronary artery disease Nonocclusive coronary disease noted on catheterization June 2012 with 50% left main disease and 40% ostial LAD disease noted on the catheterization at which time patient was diagnosed with the ascending aortic aneurysm dissection and was transferred to [place] Degenerative joint disease of knee Depression Dissecting ascending aortic aneurysm June 2012 Diverticulosis Dysthymia Essential hypertension Gout Left great toe Hyperlipidemia Hyperlipidemia LDL goal <100 Insomnia Lumbar burst fracture Obstructive sleep apnea Orthostatic hypotension Painful total knee replacement, right PLMD (periodic limb movement disorder) Pulmonary embolism This is list under the history of her patient had denied this in the past Respiratory failure Right knee pain Sleep apnea Polysomnogram 2012 nasal CPAP with a pressure of 10 cm of water Stasis dermatitis of both legs Uncomplicated alcohol dependence Surgical History Surgical History History of right knee joint replacement History of thoracotomy To repair spontaneous ascending aortic aneurysm dissection June 2012 History of total left knee replacement With patellar resurfacing Hx of CABG Due to involvement of the origin of the LAD with his ascending aneurysm. Not due to Hx of cardiac cath Hx of tonsillectomy Has a child Perirectal abscess x2 Presence of IVC filter S/P total knee arthroplasty Family History Family History Other Diabetes mellitus Heart disease Social History Social History Social History: The patient has been for approximately 52 years. He lives in [place]. 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 He drinks between 4-5 beers a day. He is a former smoker. He smoked a pack of cigarettes per day but quit approximately 30 years ago. He did start chewing tobacco in snuff. Uses about a can of snuff per week. He has 2 daughters and is and lives with his . His brother Gregory is his durable power privacy attorney for healthcare. Primary care physician is Dr. Remi Pop. Code status: Full code Smoking packs per day: 1 Smoking cigarettes per day: 20.0 Years smoked: 25 Smoking pack-years: 25.00 Smoking status: Former smoker Tobacco type: cigarettes Smokeless tobacco user
--- NOTE | 2024-01-16 20:15 | PC.NURSE ---
home contacted by cold roll packer sheet iron.
[2024-01-16 20:34] LABS: Reflex Lactic Acid Yes or No Add Lactic
== END 2024-01-16 21:49 | disposition expired ==
PROVIDERS: Student in an Organized Health Care Education/Training Program; Emergency Provider Emergency Medicine; PCP Family Medicine
DX: S19.9XXA Unspecified injury of neck, initial encounter (principal); S09.90XA Unspecified injury of head, initial encounter; I46.8 Cardiac arrest due to other underlying condition; I48.91 Unspecified atrial fibrillation; I25.10 Atherosclerotic heart disease of native coronary artery without angina pectoris; I10 Essential (primary) hypertension; E78.5 Hyperlipidemia, unspecified; N40.0 Benign prostatic hyperplasia without lower urinary tract symptoms; M17.9 Osteoarthritis of knee, unspecified; M10.9 Gout, unspecified; G47.33 Obstructive sleep apnea (adult) (pediatric); F32.A Depression, unspecified; F17.220 Nicotine dependence, chewing tobacco, uncomplicated; F17.290 Nicotine dependence, other tobacco product, uncomplicated; Z96.653 Presence of artificial knee joint, bilateral; Z95.1 Presence of aortocoronary bypass graft; Z86.711 Personal history of pulmonary embolism; Z79.899 Other long term (current) drug therapy; R91.8 Other nonspecific abnormal finding of lung field; R93.7 Abnormal findings on diagnostic imaging of other parts of musculoskeletal system
CPT/HCPCS: 31500; 36415; 36430; 71045; 80053; 82550; 83605; 84484; 85025; 85610; 85730; 86850; 86900; 86901; 86920; 92950; 96374; 99285; C1751; J7050; P9016